=== PATIENT | male | born 1965 | race Caucasian/White ===

== ENCOUNTER → 2018-03-02 | Outpatient (CLI) | payer MEDICARE, OTHER ==
[~2018-03-02] MED LIST: ACET325T38 PO; CATHETER FLUSH 10 ML SYR IV PRN; CETI10TA17 PO; HYDR-3454 PO; LVT.1T PO; MTF500T PO; MULT-974 PO; PENI500T PO; SERT100T PO; TIZA4TAB55 PO; VARE1TAB17 PO
--- NOTE | 2018-03-02 18:56 | Cardiology Stress Test Report ---
Stress Test Report Date of Procedure/Referring: Date of Procedure: Mar 02, 2018 PCP Luis Sanchez MD Admitting Physician Shahzad Bar DO Indications: Chest pain, shortness of breath Baseline Heart Rate: 80 Baseline Blood Pressure: Blood Pressure Systolic: 125 Blood Pressure Diastolic: 82 Baseline EKG: Baseline EKG: Sinus rhythm Summary/Conclusion: Summary: In summary, the patient started exercising with a baseline heart rate 80 bpm, blood pressure and EKG mentioned above. Patient was able to exercise for a total of 6.30 minutes on Nathaniel protocol, METs 7.7 Maximum heart rate 145 bpm Maximum blood pressure 214/103 mmHg. [address] no ST-T wave abnormalities. Recovery EKG Return to baseline 10.34 mCi of Myoview were given for rest imaging and 30.9 mCi of Myoview were given for stress imaging. Transient ischemic dilatation score 1.08. Ejection fraction 61 percent. Moderate size inferior reversible defect. SSS 7, SRS 3, SDS 4. Conclusion: 1. Exercise stress test is negative for ischemia. 2. Average functional capacity. 3. Hypertensive response to exercise. 4. Normal LV function. 5. Moderate inferior ischemia. Coronary angiography is recommended. Luis SANCHEZ MD Mar 02, 2018 18:56
[2018-03-03 14:32] VITALS: BP 125/82
== END ==
LOC: CARD 07:25
PROVIDERS: ATTEND Internal Medicine Interventional Cardiology
DX: R07.9 Chest pain, unspecified (principal); E78.5 Hyperlipidemia, unspecified; I10 Essential (primary) hypertension
CPT/HCPCS: 78452; 93017

== ENCOUNTER → 2018-11-23 | Outpatient (CLI) | payer MEDICARE, OTHER ==
[~2018-11-23] MED LIST changes: +ALPR0.5T PO; +BUDE10.2 IH; -CATHETER FLUSH 10 ML SYR IV PRN; +CYCL10TA9 PO; +ESCI20TA PO; +GABA-488 PO; +HOLD METFORMIN - RECEIVED CONTRAST 20 ML VIAL IV SCH; +IBUP-2055 PO; +IOHEXOL 350 MG/ML 100 ML (OMNIPAQUE 350) VIAL IV ONE; +LEVO100T7 PO; +LISI10TA2 PO; +METF-397 PO; +MULT-178 PO; +NS 100 ML (IVPB) BAG IV ONE; +OMEG-160 PO; +RISP1TAB3 PO; +SIMV20TA3 PO
[2018-11-23 08:59] LABS: CREATININE SERUM 1.27 MG/DL (0.60-1.30)
--- NOTE | 2018-11-23 11:19 | Diagnostic Imaging Report ---
PROCEDURE: CT chest with contrast only. TECHNIQUE: Multiple contiguous axial images were obtained through the chest after administration of intravenous contrast. Auto Exposure Controls were utilized during the CT exam to meet ALARA standards for radiation dose reduction. INDICATION: Dyspnea and COPD. COMPARISON: No prior CT chest studies are available for comparison. FINDINGS: No axillary lymphadenopathy is detected. There is an enlarged lymph node identified in the mediastinum on AP window measuring 20 mm x 12 mm. Smaller, normal-sized lymph nodes elsewhere within the mediastinum are also noted. The abdiel are unremarkable. No pericardial or pleural fluid is detected. Parenchymal evaluation does demonstrate significant emphysematous changes throughout both lungs. No parenchymal mass or infiltrate is identified. Minimal scarring in the lingula and right middle lobe is noted. The upper abdomen is unremarkable. IMPRESSION: Enlarged AP window lymph node, indeterminate. No pulmonary parenchymal mass or infiltrate is seen. There are emphysematous changes noted. Followup CT chest for six months could be performed to confirm stability. Dictated by: Dictated on workstation # [id number]
== END ==
LOC: RAD 08:27
PROVIDERS: ATTEND Nurse Practitioner Family
DX: J43.9 Emphysema, unspecified (principal); J30.1 Allergic rhinitis due to pollen; Z72.0 Tobacco use
CPT/HCPCS: 36415; 71260; 82565; 84520

== ENCOUNTER → 2019-01-18 | Outpatient (CLI) | payer OTHER, MEDICARE ==
[~2019-01-18] MED LIST changes: -HOLD METFORMIN - RECEIVED CONTRAST 20 ML VIAL IV SCH; -IOHEXOL 350 MG/ML 100 ML (OMNIPAQUE 350) VIAL IV ONE; -NS 100 ML (IVPB) BAG IV ONE
[2019-01-18 19:50] LABS: BASOPHILS % (AUTO) 0 % (0-10); EOSINOPHILS # (AUTO) 0.2 10^3/uL (0.0-0.3); EOSINOPHILS % (AUTO) 4 % (0-10); HEMATOCRIT 42 % (40-54); HEMOGLOBIN 13.4 G/DL (13.3-17.7); LYMPHOCYTES # (AUTO) 1.3 X 10^3 (1.0-4.0); LYMPHOCYTES % (AUTO) 24 % (12-44); MEAN CORPUSCULAR HEMOGLOBIN 29 PG (25-34); MEAN CORPUSCULAR HGB CONC 32 G/DL (32-36); MEAN CORPUSCULAR VOLUME 90 FL (80-99); MEAN PLATELET VOLUME 9.5 FL (7.4-10.4); MONOCYTES # (AUTO) 0.6 X 10^3 (0.0-1.0); MONOCYTES % (AUTO) 11 % (0-12); NEUTROPHILS # (AUTO) 3.3 X 10^3 (1.8-7.8); NEUTROPHILS % (AUTO) 61 % (42-75); PLATELET COUNT 259 10^3/uL (130-400); RED CELL DISTRIBUTION WIDTH 14.2 % (10.0-14.5); WHITE BLOOD COUNT 5.4 10^3/uL (4.3-11.0)
== END ==
LOC: LABNPT 19:43
DX: Z01.89 Encounter for other specified special examinations (principal)
CPT/HCPCS: 85025

== ENCOUNTER → 2019-06-06 | Outpatient (CLI) | payer MEDICARE, OTHER ==
[~2019-06-06] MED LIST changes: +HOLD METFORMIN - RECEIVED CONTRAST 20 ML VIAL IV SCH; -IBUP-2055 PO; +IBUP-2473 PO; +IOHEXOL 350 MG/ML 100 ML (OMNIPAQUE 350) VIAL IV ONE; +NS 100 ML (IVPB) BAG IV ONE; +RT-ALBUTEROL SULF 2.5 MG/3 ML PRE-MIX VIAL INH ONE; +SIMV20TA26 PO; -SIMV20TA3 PO
[2019-06-06 08:25] LABS: BUN/CREATININE RATIO 6; CREATININE SERUM 1.09 MG/DL (0.60-1.30); GFR ESTIMATED > 60
--- NOTE | 2019-06-06 09:40 | Diagnostic Imaging Report ---
EXAMINATION: CT Chest with intravenous contrast. TECHNIQUE: Multiple contiguous axial images were obtained through the chest after the uneventful administration of intravenous contrast. All CT scans use one or more of the following dose optimizing techniques: automated exposure control, MA and/or KvP adjustment based on a patient size and exam type, or iterative reconstruction. HISTORY: Throat cancer. COMPARISON: 11/23/2018. FINDINGS: There is no edema or pneumonia. No pleural effusion. No pneumothorax. There is a stable 3 mm nodule in the lingula (series 3, image 96). The lungs are severely emphysematous. The heart size is normal. There are moderate coronary artery calcifications. No pericardial effusion. The aorta is normal in caliber. There is no axillary or supraclavicular lymphadenopathy. There is a stable 12 mm short axis AP window lymph node. Limited views of the upper abdomen are unremarkable. There are no suspicious osseus lesions. IMPRESSION: Stable tiny pulmonary nodules and mildly enlarged mediastinal lymph nodes. Dictated by: Dictated on workstation # [id number]
== END ==
LOC: RAD 07:57
PROVIDERS: ATTEND Nurse Practitioner Family
DX: J44.9 Chronic obstructive pulmonary disease, unspecified (principal); J30.1 Allergic rhinitis due to pollen; R59.0 Localized enlarged lymph nodes; Z72.0 Tobacco use; Z85.89 Personal history of malignant neoplasm of other organs and systems
CPT/HCPCS: 36415; 71260; 82565; 84520; 94060; 94726; 94729

== ENCOUNTER 2020-03-05 10:35 | Inpatient (IN) | payer MEDICARE, OTHER ==
[~2020-03-05] VITALS: Ht 165.1 cm; Wt 67.5 kg
[~2020-03-05 10:35] MED LIST changes: -HOLD METFORMIN - RECEIVED CONTRAST 20 ML VIAL IV SCH; -IOHEXOL 350 MG/ML 100 ML (OMNIPAQUE 350) VIAL IV ONE; -NS 100 ML (IVPB) BAG IV ONE; -RISP1TAB3 PO; +RISP1TAB93 PO; -RT-ALBUTEROL SULF 2.5 MG/3 ML PRE-MIX VIAL INH ONE
[2020-03-05] MEDS ORDERED: ENOXAPARIN 40 MG/0.4 ML (LOVENOX) SYR SC SCH (11:15)
[2020-03-05] MEDS ORDERED: PHARMACY TO DOSE IV SCH (11:15)
[2020-03-05] MEDS: NS IV 1000 ML 1,000 ML IV SCH (15:42)
[2020-03-05] MEDS: fentaNYL DRIP PRE-MIX 250 ML IV SCH (15:43)
[2020-03-05] MEDS: PROPOFOL DRIP (ICU) 100 ML IV SCH (15:50)
[2020-03-05 16:10] LABS: CHLORIDE 90 MMOL/L (98-107); POTASSIUM 3.3 MMOL/L (3.6-5.0); SODIUM 138 MMOL/L (135-145)
[2020-03-05 16:11] LABS: CALCIUM 7.8 MG/DL (8.5-10.1)
[2020-03-05 16:12] LABS: GLUCOSE 163 MG/DL (70-105)
[2020-03-05 16:13] LABS: CARBON DIOXIDE 36 MMOL/L (21-32)
[2020-03-05 16:16] LABS: GFR ESTIMATED > 60
--- NOTE | 2020-03-05 16:16 | Diagnostic Imaging Report ---
INDICATION: Shortness of breath. EXAMINATION: Portable chest at 4:02 p.m. FINDINGS: There is an ET tube projecting over the trachea. NG tube enters the stomach. Heart size and pulmonary vascularity are normal. Lungs are clear. There is no effusion or pneumothorax. IMPRESSION: No acute abnormality in the chest. Dictated by: Dictated on workstation # [id number]
[2020-03-05 16:17] LABS: BUN/CREATININE RATIO 13
[2020-03-05 16:19] VITALS: BP 167/98
[2020-03-05] MEDS ORDERED: RT-ALBUTEROL SULF 2.5 MG/3 ML PRE-MIX VIAL INH PRN (16:30)
[2020-03-05] MEDS ORDERED: LACTATED RINGERS 1,000 ML IV ONE (16:45)
[2020-03-05] MEDS ORDERED: LACTATED RINGERS 2,000 ML IV ONE (16:46)
[2020-03-05] MEDS: LACTATED RINGERS 1,000 ML IV SCH (16:50)
--- NOTE | 2020-03-05 17:06 | NUR ---
CR 0.8; CR CL > 60; WT 63.4 KG; VANCO 1250 MG IV BOLUS THEN 1000 MG IV Q12H; TROUGH AFTER 3RD DOSE
[2020-03-05] MEDS ORDERED: VANCOMYCIN 1250 MG/NS 250 ML IVPB IV NR ×2 (17:15)
[2020-03-05] MEDS: CEFEPIME INJECTION 2,000 MG in WATER (STERILE) FOR INJECTION 20 ML IV SCH (18:16)
[2020-03-05] MEDS: ENOXAPARIN 40 MG/0.4 ML (LOVENOX) SYR SC SCH (18:17)
[2020-03-05] MEDS: NOREPINEPHRINE 4 MG/250 ML 250 ML IV SCH (18:22)
[2020-03-05 19:20] VITALS: BP 122/77
[2020-03-05] MEDS: RT-ALBUTEROL/IPRATROPIUM 3 ML (DUONEB) VIAL INH SCH ×2 (19:20→22:36)
[2020-03-05 19:31] LABS: ABG BASE EXCESS 16.1 MMOL/L (-2.5-2.5); ABG OXYGEN SATURATION 95 % (94-100); ABG PCO2 45 MMHG (35-45); ABG PH 7.55 (7.37-7.43); ABG PO2 56 MMHG (79-93); ABG TCO2 41.7 MMOL/L (21.0-31.0); ALLENS TEST YES-POS; INSPIRED O2 45%; PATIENT TEMP 36.2; VENTILATOR YES
--- NOTE | 2020-03-05 20:48 | Progress Note ---
Progress Note 54yoWM patient of Dr Bar who [place] [facility] [place] [facility] due to worsening respiratory failure and AMS due to hypoxia and hypercapnia. Patient has severe COPD and continues to smoke 2ppd and was admitted to [facility] Tuesday with severe dyspnea and resp failure requiring biPAP. COVID rapid and PCR negative. Placed on IV abx and steroids. Severe chronic anxiety caused diff with biPAP maintenance. BiPAP DC this morning due to improved hypercapnia but he became more and more confused and was ultimately intubated due to worsened hypoxia. DNR was revoked on Tuesday after DNR order obtained on admit. SHELLEY KRAMER DO Mar 05, 2020 20:48
[2020-03-05 22:36] VITALS: BP_DIAS 77
[2020-03-06] MEDS: PROPOFOL DRIP (ICU) 100 ML IV SCH ×3 (00:08→20:22)
[2020-03-06] MEDS: LACTATED RINGERS 1,000 ML IV SCH ×5 (02:08→23:48)
[2020-03-06] MEDS: fentaNYL DRIP PRE-MIX 250 ML IV SCH ×3 (02:08→18:23)
[2020-03-06] MEDS: RT-ALBUTEROL/IPRATROPIUM 3 ML (DUONEB) VIAL INH SCH ×6 (02:57→22:24)
--- NOTE | 2020-03-06 02:58 | Pulmonary Consultation ---
COOPER PEREZ,MED STUDENT 03/06/20 0258: History of Present Illness History of Present Illness Date Seen by Provider: Mar 06, 2020 Time Seen by Provider: 03:00 Date of Admission 03/05/20 History of Present Illness Patient is a 54yo male with a hx of COPD transferred to [facility] from [facility] [place] due to worsening respiratory failure and AMS. He has severe COPD and was admitted to [facility] on 03/03 due to respiratory failure requiring BIPAP. He was started on antibiotics and steroids, and attempted to DC BIPAP, but he became more hypoxic and confused and ultimately required intubation and transfer to ICU. COVID rapid and PCR were negative. Allergies and Home Medications Allergies Coded Allergies: No Known Drug Allergies (Unverified , 03/23/13) Home Medications Alprazolam 0.5 Mg Tablet, 0.5 MG PO HS, (Reported) Budesonide/Formoterol Fumarate 10.2 Gm Hfa.aer.ad, 2 PUFF IH DAILY, (Reported) Cetirizine HCl 10 Mg Tablet, 10 MG PO 1200, (Reported) Cyclobenzaprine HCl 10 Mg Tablet, 10 MG PO DAILY, (Reported) Escitalopram Oxalate 20 Mg Tablet, 30 MG PO DAILY, (Reported) TAKES 1 & 1/2 TABS OF THE 20MG TO EQUAL A 30MG DOSE Gabapentin 300 Mg Capsule, 300 MG PO BID, (Reported) Ibuprofen 200 Mg Tablet, 400 MG PO DAILY, (Reported) Levothyroxine Sodium 100 Mcg Tablet, 100 MCG PO 1200, (Reported) Lisinopril 10 Mg Tablet, 10 MG PO HS, (Reported) Metformin HCl 500 Mg Tablet, 500 MG PO BID, (Reported) Multivitamin 1 Each Tablet, 1 EACH PO DAILY, (Reported) Olpe-3/Dha/Epa/Fish Oil 1 Each Capsule, 1 EACH PO DAILY, (Reported) Risperidone 1 Mg Tablet, 1 MG PO HS, (Reported) Simvastatin 20 Mg Tablet, 20 MG PO HS, (Reported) Past Hiygfql-Rrydox-Btysyl Hx Patient Social History Type Used: Cigarettes Immunizations Up To Date Date of Pneumonia Vaccine: Jun 03, 2017 Date of Influenza Vaccine: Dec 27, 2012 Past Medical History Respiratory: Yes COPD Currently Using CPAP: No Currently Using BIPAP: No Cardiac: Yes Hypertension Neurological: No Genitourinary: No Gastrointestinal: No Hypothyroidsim Cancer: Yes Oral Did You Recieve Any Treatments: Yes Blood Disorders: No Review of Systems Other Unable to obtain, sedated on vent Sepsis Event Evaluation Height, Weight, BMI Height: 5'8.00" Weight: 139lbs. 0.0oz. 63.306803mu; 21.1 BMI Method: Exam Exam Vital Signs Date Time Temp Pulse Resp B/P (MAP) Pulse Ox O2 Delivery O2 Flow Rate FiO2 03/06/20 00:08 89 128/83 03/06/20 00:00 98 Mechanical Ventilator 45 03/05/20 23:00 93 24 109/76 (87) 99 Mechanical Ventilator 40.00 03/05/20 22:48 Mechanical Ventilator 40.00 03/05/20 22:36 80 24 100 45 03/05/20 22:00 78 23 116/75 (89) 100 Mechanical Ventilator 45.00 03/05/20 21:00 85 24 110/71 (84) 100 Mechanical Ventilator 45.00 03/05/20 20:05 36.2 03/05/20 20:00 100 Mechanical Ventilator 60 03/05/20 20:00 93 24 116/74 (88) 100 Mechanical Ventilator 45.00 03/05/20 19:20 90 24 97 45 03/05/20 19:00 89 03/05/20 19:00 89 19 115/76 (89) 99 Mechanical Ventilator 45.00 03/05/20 18:22 87 128/83 03/05/20 18:00 36.8 87 23 128/83 (98) 99 Mechanical Ventilator 95.00 03/05/20 17:00 36.8 78 24 138/89 (105) 99 Mechanical Ventilator 95.00 03/05/20 16:19 102 100 03/05/20 16:00 100 Mechanical Ventilator 60 03/05/20 16:00 36.8 85 24 70/42 (51) 95 Mechanical Ventilator 95.00 03/05/20 15:50 94 94/53 03/05/20 15:10 106 03/05/20 15:00 99 Mechanical Ventilator 03/05/20 15:00 36.8 102 24 167/98 (121) 100 Mechanical Ventilator 95.00 l I & O 03/06/20 06:59 Intake Total 0 ml Output Total 550 ml Balance -550 ml Height & Weight Height: 5'8.00" Weight: 139lbs. 0.0oz. 63.906722gf; 21.1 BMI Method: Capillary Refill: Less Than 3 Seconds Results Lab Laboratory Tests 03/05/20 15:45 Assessment/Plan Assessment/Plan Acute on chronic respiratory failure -On vent 40% FiO2, PEEP of 10 -On propofol and fentanyl -COVID rapid and PCR negative COPD with acute exacerbation -On vent -On Cefepime and Vanc -continue Duoneb -MRSA screen pending -repeat ABG Hypokalemia -continue to replace -on LR at 150/hr Hypophosphatemia -replace Hypotension -on Levophed 0.03/hr -on IV fluids -monitor DVT/GI ppx: -on Lovenox and Protonix BARBY CAPELLAN DO 03/06/20 0551: Allergies and Home Medications Allergies Coded Allergies: No Known Drug Allergies (Unverified , 03/23/13) Home Medications Alprazolam 0.5 Mg Tablet, 0.5 MG PO HS, (Reported) Budesonide/Formoterol Fumarate 10.2 Gm Hfa.aer.ad, 2 PUFF IH DAILY, (Reported) Cetirizine HCl 10 Mg Tablet, 10 MG PO 1200, (Reported) Cyclobenzaprine HCl 10 Mg Tablet, 10 MG PO DAILY, (Reported) Escitalopram Oxalate 20 Mg Tablet, 30 MG PO DAILY, (Reported) TAKES 1 & 1/2 TABS OF THE 20MG TO EQUAL A 30MG DOSE Gabapentin 300 Mg Capsule, 300 MG PO BID, (Reported) Ibuprofen 200 Mg Tablet, 400 MG PO DAILY, (Reported) Levothyroxine Sodium 100 Mcg Tablet, 100 MCG PO 1200, (Reported) Lisinopril 10 Mg Tablet, 10 MG PO HS, (Reported) Metformin HCl 500 Mg Tablet, 500 MG PO BID, (Reported) Multivitamin 1 Each Tablet, 1 EACH PO DAILY, (Reported) Olpe-3/Dha/Epa/Fish Oil 1 Each Capsule, 1 EACH PO DAILY, (Reported) Risperidone 1 Mg Tablet, 1 MG PO HS, (Reported) Simvastatin 20 Mg Tablet, 20 MG PO HS, (Reported) Review of Systems Time Seen by Provider: 05:50 Assessment/Plan Assessment/Plan Acute on chronic respiratory failure -On vent 40% FiO2, PEEP of 10 -Decrease RR to 20 and PEEP 5 -On propofol and fentanyl -COVID rapid and PCR negative -MRSA swab is pending -Start TF COPD with acute exacerbation -On vent -On Cefepime and Vanc -continue Duoneb -MRSA screen pending -repeat ABG Hypokalemia -continue to replace -on LR at 150/hr Hypophosphatemia -replace Hypotension -on Levophed 0.03/hr -on IV fluids -monitor DVT/GI ppx: -on Lovenox and Protonix COOPER PEREZMED STUDENT Mar 06, 2020 02:58 BARBY CAPELLAN DO Mar 06, 2020 05:51
[2020-03-06 03:01] LABS: ABG BASE EXCESS 14.7 MMOL/L (-2.5-2.5); ABG OXYGEN SATURATION 98 % (94-100); ABG PCO2 52 MMHG (35-45); ABG PH 7.49 (7.37-7.43); ABG PO2 90 MMHG (79-93); ABG TCO2 40.9 MMOL/L (21.0-31.0)
[2020-03-06 03:02] LABS: BASOPHILS % (AUTO) 0 % (0-10); EOSINOPHILS % (AUTO) 0 % (0-10); HEMATOCRIT 35 % (40-54); HEMOGLOBIN 11.5 g/dL (13.3-17.7); LYMPHOCYTES # (AUTO) 0.7 10^3/uL (1.0-4.0); LYMPHOCYTES % (AUTO) 9 % (12-44); MEAN CORPUSCULAR HEMOGLOBIN 31 pg (25-34); MEAN CORPUSCULAR HGB CONC 33 g/dL (32-36); MEAN CORPUSCULAR VOLUME 93 fL (80-99); MEAN PLATELET VOLUME 8.5 fL (9.0-12.2); MONOCYTES # (AUTO) 0.6 10^3/uL (0.0-1.0); MONOCYTES % (AUTO) 8 % (0-12); NEUTROPHILS # (AUTO) 6.2 10^3/uL (1.8-7.8); NEUTROPHILS % (AUTO) 83 % (42-75); PLATELET COUNT 199 10^3/uL (130-400); WHITE BLOOD COUNT 7.4 10^3/uL (4.3-11.0)
[2020-03-06 03:03] LABS: ALLENS TEST ART LINE; INSPIRED O2 40%; VENTILATOR YES
[2020-03-06 03:04] LABS: PATIENT TEMP 36.8
[2020-03-06] MEDS: NS IV 1000 ML 1,000 ML IV SCH ×2 (03:17→11:04)
[2020-03-06] MEDS: NOREPINEPHRINE 4 MG/250 ML 250 ML IV SCH ×2 (03:23→14:52)
[2020-03-06 03:24] LABS: ALANINE AMINOTRANSFERASE 18 U/L (0-55); ALBUMIN 3.1 GM/DL (3.2-4.5); ALKALINE PHOSPHATASE 66 U/L (40-136); BILIRUBIN,TOTAL 0.2 MG/DL (0.1-1.0); BUN/CREATININE RATIO 17; CALCIUM 7.3 MG/DL (8.5-10.1); CARBON DIOXIDE 35 MMOL/L (21-32); CHLORIDE 94 MMOL/L (98-107); CREATININE SERUM 0.92 MG/DL (0.60-1.30); GFR ESTIMATED > 60; GLUCOSE 130 MG/DL (70-105); MAGNESIUM 1.6 MG/DL (1.6-2.4); PHOSPHORUS 1.7 MG/DL (2.3-4.7); SODIUM 141 MMOL/L (135-145)
[2020-03-06] MEDS: POTASSIUM CL 10MEQ/50ML IVPB 50 ML IV SCH ×6 (04:01→09:05)
[2020-03-06] MEDS: KCL 20 MEQ TAB (K-DUR) PO SCH (04:01)
[2020-03-06] MEDS: MAGNESIUM 1 GM/100 ML IVPB 100 ML IV SCH ×3 (04:01→05:20)
[2020-03-06] MEDS ORDERED: NS (IVPB) 0 ML ONE (04:10)
[2020-03-06] MEDS ORDERED: VANCOMYCIN 1000 MG/VIAL ONE (04:10)
[2020-03-06] MEDS: CEFEPIME INJECTION 2,000 MG in WATER (STERILE) FOR INJECTION 20 ML IV SCH ×2 (04:18→17:12)
[2020-03-06] MEDS: VANCOMYCIN 1 GM/NS 250 ML IVPB IV SCH ×4 (04:58→17:11)
--- NOTE | 2020-03-06 05:57 | History & Physical-Hospitalist ---
History of Present Illness HPI/Chief Complaint CC: VDRF HPI: This is a 54yoWM clinic patient of Dr Bar who [place] [facility] [place]DRF in severe COPD patient who is still actively smoking. DNR rescinded yesterday and worsened respiratory status after COVID negative results. PNA treated along with AECOPD with steroids and biPAP did not improve status so he was electively intubated and transferred. Source: RN/MD, old records, other Exam Limitations: clinical condition Date Seen 03/06/20 Time Seen by a Provider: 10:00 Attending Physician Jazmine Martell DO PCP Shahzad Bar DO Referring Physician Date of Admission Mar 05, 2020 at 15:18 Home Medications & Allergies Home Medications Reviewed patient Home Medication Reconciliation performed by pharmacy medication reconciliations records technician and/or nursing. Patients Allergies have been reviewed. Allergies Allergies Coded Allergies No Known Drug Allergies (Unverified03/23/13) Past Pvdqjzi-Sueozo-Zuujij Hx Past Med/Social Hx: Reviewed Nursing Past Med/Soc Hx, Reviewed and Corrections made Patient Social History Marrital Status: Employed/Student: unemployed Alcohol Use: Denies Use Smoking Status: Current Everyday Smoker Type Used: Cigarettes Immunizations Up To Date Date of Pneumonia Vaccine: Jun 03, 2017 Date of Influenza Vaccine: Dec 27, 2012 Past Medical History Respiratory: COPD, Emphysema, Pneumonia Currently Using CPAP: No Currently Using BIPAP: No Cardiac: High Cholesterol, Hypertension Endocrine: Hypothyroidsim Cancer: Oral Did You Recieve Any Treatments: Yes Psychosocial: Anxiety History of Blood Disorders: No Review of Systems Constitutional: see HPI Physical Exam Physical Exam Vital Signs Vital Signs - First Documented 03/05/20 16:00 FiO2 60 Capillary Refill : Less Than 3 Seconds Height, Weight, BMI Height: 5'8.00" Weight: 139lbs. 0.0oz. 63.247912ox; 21.1 BMI Method: General Appearance: No Apparent Distress, Chronically ill, Thin Respiratory: Lungs Clear, Decreased Breath Sounds Cardiovascular: Regular Rate, Rhythm Neurologic/Psychiatric: Other (sedated) Results Results/Procedures Labs Laboratory Tests 03/05/20 15:45 03/06/20 02:54 Patient resulted labs reviewed. Assessment/Plan Admission Diagnosis Assessment: VDRF AECOPD Severe COPD Current smoker Anxiety HLP HTN Plan: Vent management Appreciate Dr Padron Admission Status: Inpatient Order (span 2 midnights) Reason for Inpatient Admission: VDRF Diagnosis/Problems Diagnosis/Problems (1) Respiratory failure Clinical Quality Measures DVT/VTE Risk/Contraindication: Risk Factor Score Per Nursin RFS Level Per Nursing on Admit: 4+=Very High JAZMINE MARTELL DO Mar 06, 2020 05:57
[2020-03-06] MEDS ORDERED: LACTATED RINGERS 1,000 ML IV SCH (06:00)
--- NOTE | 2020-03-06 06:00 | NUR ---
This nurse notified of patients decreased urine output. order received for a 1L LR bolus
[2020-03-06 06:50] VITALS: BP 149/95
[2020-03-06 07:01] LABS: BILIRUBIN,URINE 1+ (NEGATIVE); CLARITY,URINE CLOUDY; COLOR,URINE YELLOW; GLUCOSE, URINE (UA) NEGATIVE (NEGATIVE); KETONES,URINE TRACE (NEGATIVE); LEUKOCYTE ESTERASE ,URINE NEGATIVE (NEGATIVE); NITRITE,URINE NEGATIVE (NEGATIVE); PROTEIN,URINE 2+ (NEGATIVE)
[2020-03-06 07:10] LABS: AMORPHOUS SEDIMENT,UR FEW AMOR URATES /LPF; BACTERIA,URINE MODERATE /HPF; HYALINE CASTS, URINE 0-2 /LPF; RBC,URINE >100 /HPF
--- NOTE | 2020-03-06 07:40 | Diagnostic Imaging Report ---
CHEST 1 VIEW, AP/PA ONLY Indication: Dyspnea Comparison: 03/05/2020 Findings: Stable ET and enteric tubes. No pleural effusion or pneumothorax. Left basilar ill-defined opacities are stable to mildly progressed. Stable cardiac mediastinal silhouette. Impression: 1. Stable support devices. 2. Left basilar pulmonary opacities have increased and may be due to atelectasis, aspiration or pneumonia. Dictated by: Dictated on workstation # [id number]
[2020-03-06] MEDS: PANTOPRAZOLE 40 MG (PROTONIX) VIAL IV SCH (08:51)
[2020-03-06] MEDS ORDERED: POTASSIUM PHOSPHATE INJ 30 MM in NS (IVPB) 250 ML IV ONE (09:00)
[2020-03-06 09:26] LABS: ABG BASE EXCESS 11.5 MMOL/L (-2.5-2.5); ABG OXYGEN SATURATION 78 % (94-100); ABG PCO2 69 MMHG (35-45); ABG PH 7.35 (7.37-7.43); ABG PO2 43 MMHG (79-93); ABG TCO2 39.7 MMOL/L (21.0-31.0)
[2020-03-06 09:29] LABS: ALLENS TEST POSITIVE; INSPIRED O2 40%; PATIENT TEMP 36.4; VENTILATOR YES
[2020-03-06 10:12] VITALS: BP 117/83
[2020-03-06] MEDS ORDERED: LACTATED RINGERS 500 ML IV ONE ×2 (11:15→18:15)
--- NOTE | 2020-03-06 12:16 | NUR ---
PT ELEANOR WAS UPDATED ON CURRENT PT STATUS.
--- NOTE | 2020-03-06 14:17 | NUR ---
Shoaib RN stated he was planning on placing a dietary consult for vent status. Discussed with him plan of care and if plan was to remain intubated for more than 3days, would recommend initiation of TF of Pulmocare via 60ml bolus feeds q4h, with 30ml free water flushes before/after each bolus. Recommend continue to increase TF by 30ml q8h as tolerated toward goal of 200ml bolus feeds q4h. Will continue to follow and reassess as pt needs, intake, and status change. Kerry Tao, MS RD LD [phone] cell
[2020-03-06 14:35] VITALS: BP 116/74
[2020-03-06] MEDS: ENOXAPARIN 40 MG/0.4 ML (LOVENOX) SYR SC SCH (17:12)
[2020-03-06 18:46] VITALS: BP 116/74
[2020-03-06 22:24] VITALS: BP 109/68
[2020-03-07] MEDS: NOREPINEPHRINE 4 MG/250 ML 250 ML IV SCH
[2020-03-07] MEDS: PROPOFOL DRIP (ICU) 100 ML IV SCH (00:48)
[2020-03-07 02:24] VITALS: BP 102/66
[2020-03-07] MEDS: RT-ALBUTEROL/IPRATROPIUM 3 ML (DUONEB) VIAL INH SCH ×6 (02:24→22:27)
[2020-03-07 02:30] LABS: ABG BASE EXCESS 7.3 MMOL/L (-2.5-2.5); ABG OXYGEN SATURATION 90 % (94-100); ABG PCO2 67 MMHG (35-45); ABG PO2 64 MMHG (79-93); ABG TCO2 35.8 MMOL/L (21.0-31.0)
[2020-03-07 02:33] LABS: ALLENS TEST YES-POS; INSPIRED O2 45%; PATIENT TEMP 35.8; VENTILATOR YES
[2020-03-07 02:36] LABS: BASOPHILS % (AUTO) 0 % (0-10); EOSINOPHILS % (AUTO) 0 % (0-10); HEMATOCRIT 40 % (40-54); HEMOGLOBIN 12.4 g/dL (13.3-17.7); LYMPHOCYTES # (AUTO) 1.4 10^3/uL (1.0-4.0); LYMPHOCYTES % (AUTO) 16 % (12-44); MEAN CORPUSCULAR HEMOGLOBIN 30 pg (25-34); MEAN CORPUSCULAR HGB CONC 31 g/dL (32-36); MEAN CORPUSCULAR VOLUME 98 fL (80-99); MEAN PLATELET VOLUME 8.8 fL (9.0-12.2); MONOCYTES # (AUTO) 0.6 10^3/uL (0.0-1.0); MONOCYTES % (AUTO) 7 % (0-12); NEUTROPHILS # (AUTO) 6.9 10^3/uL (1.8-7.8); NEUTROPHILS % (AUTO) 76 % (42-75); PLATELET COUNT 235 10^3/uL (130-400)
[2020-03-07 02:37] LABS: ABG PH 7.31 (7.37-7.43)
[2020-03-07 02:50] LABS: CHLORIDE 97 MMOL/L (98-107); POTASSIUM 4.1 MMOL/L (3.6-5.0); SODIUM 138 MMOL/L (135-145)
[2020-03-07 02:51] LABS: CALCIUM 7.5 MG/DL (8.5-10.1)
[2020-03-07 02:52] LABS: GLUCOSE 93 MG/DL (70-105); TRIGLYCERIDES 378 MG/DL (<150)
[2020-03-07 02:53] LABS: CARBON DIOXIDE 31 MMOL/L (21-32)
[2020-03-07 02:56] LABS: CREATININE SERUM 0.88 MG/DL (0.60-1.30); GFR ESTIMATED > 60; PHOSPHORUS 4.1 MG/DL (2.3-4.7)
[2020-03-07 02:57] LABS: BUN/CREATININE RATIO 20
[2020-03-07 03:08] LABS: VANCOMYCIN,TROUGH 27.4 UG/ML (10.0-20.0)
[2020-03-07] MEDS: fentaNYL DRIP PRE-MIX 250 ML IV SCH ×3 (03:22→18:33)
--- NOTE | 2020-03-07 03:52 | Pulmonary Progress Note ---
COOPER PEREZ,MED STUDENT 03/07/20 0352: Subjective Date Seen by a Provider: Mar 07, 2020 Time Seen by a Provider: 03:30 Subjective/Events-last exam Sedated on vent Sats dropped into 70's overnight, improved with suctioning and repositioning Sepsis Event Evaluation Height, Weight, BMI Height: 5'8.00" Weight: 139lbs. 0.0oz. 63.592004dn; 21.1 BMI Method: Exam Exam Vital Signs Date Time Temp Pulse Resp B/P (MAP) Pulse Ox O2 Delivery O2 Flow Rate FiO2 03/07/20 03:28 Mechanical Ventilator 50.00 03/07/20 02:24 81 20 92 45 03/07/20 00:48 73 03/06/20 23:00 73 19 99/64 (76) 92 Mechanical Ventilator 40.00 03/06/20 22:24 Mechanical Ventilator 40.00 03/06/20 22:24 75 20 97 45 03/06/20 22:00 76 20 102/69 (80) 96 Mechanical Ventilator 45.00 03/06/20 21:00 76 20 109/68 (82) 95 Mechanical Ventilator 45.00 03/06/20 20:55 76 20 112/70 (84) 95 Mechanical Ventilator 45.00 03/06/20 20:45 Mechanical Ventilator 45 03/06/20 20:22 116/74 03/06/20 20:00 75 20 112/70 (84) 99 Mechanical Ventilator 45.00 03/06/20 19:50 35.3 03/06/20 19:00 73 03/06/20 19:00 72 20 93 Mechanical Ventilator 45.00 03/06/20 18:46 75 20 93 35 03/06/20 18:00 78 19 92 Mechanical Ventilator 40.00 03/06/20 17:00 80 20 92 Mechanical Ventilator 40.00 03/06/20 16:00 84 19 95 Mechanical Ventilator 40.00 03/06/20 16:00 93 Mechanical Ventilator 35 03/06/20 15:46 82 116/74 03/06/20 15:35 35.7 03/06/20 15:00 81 19 91 Mechanical Ventilator 40.00 03/06/20 14:35 82 20 91 35 03/06/20 14:00 86 19 93 Mechanical Ventilator 40.00 03/06/20 13:00 85 03/06/20 13:00 85 19 103/75 (84) 94 Mechanical Ventilator 40.00 03/06/20 12:00 81 20 131/94 (106) 95 Mechanical Ventilator 40.00 03/06/20 12:00 94 Mechanical Ventilator 35 03/06/20 11:49 36.1 03/06/20 11:00 80 20 87/63 (71) 95 Mechanical Ventilator 40.00 03/06/20 10:12 87 20 99 40 03/06/20 10:00 81 16 109/74 (86) 98 Mechanical Ventilator 40.00 03/06/20 09:00 121 15 108/74 (85) 97 Mechanical Ventilator 40.00 03/06/20 08:00 96 Mechanical Ventilator 40 03/06/20 08:00 86 20 128/89 (102) 97 Mechanical Ventilator 40.00 03/06/20 07:47 35.9 03/06/20 07:00 87 20 127/85 (99) 93 Mechanical Ventilator 40.00 03/06/20 07:00 86 03/06/20 06:50 87 20 96 40 03/06/20 06:20 37.2 03/06/20 06:00 82 23 135/87 (103) 99 Mechanical Ventilator 40.00 03/06/20 05:00 81 24 125/80 (95) 99 Mechanical Ventilator 40.00 03/06/20 04:00 80 24 122/74 (90) 98 Mechanical Ventilator 40.00 03/06/20 04:00 98 Mechanical Ventilator 45 I & O0 03/07/20 07:00 Intake Total 0 ml Output Total 425 ml Balance -425 ml Height & Weight Height: 5'8.00" Weight: 139lbs. 0.0oz. 63.412336dg; 21.1 BMI Method: General Appearance: No Apparent Distress, Chronically ill, Thin Respiratory: Lungs Clear, Decreased Breath Sounds Cardiovascular: Regular Rate, Rhythm Capillary Refill: Less Than 3 Seconds Neurologic/Psychiatric: Other (sedated) Results Lab Laboratory Tests 03/05/20 15:45 03/06/20 02:54 03/07/20 01:50 Assessment/Plan Assessment/Plan Acute on chronic respiratory failure -On vent 50% FiO2, PEEP of 5 -Increase PEEP to 10 -On propofol and fentanyl -COVID rapid and PCR negative -MRSA swab negative -Started TF COPD with acute exacerbation -On vent -On Cefepime and Vanc -continue Duoneb -MRSA screen negative -repeat ABG Hypokalemia - improved -continue to replace -on LR at 150/hr Hypophosphatemia - improved -replace Hypotension -Levophed off -on IV fluids -monitor DVT/GI ppx: -on Lovenox and Protonix BARBY CAPELLAN DO 03/07/20 0427: Assessment/Plan Assessment/Plan Acute on chronic respiratory failure -On vent 50% FiO2, PEEP of 5 -Increase PEEP to 10 -On propofol and fentanyl -COVID rapid and PCR negative -MRSA swab negative -Started TF COPD with acute exacerbation -On vent -On Cefepime and Vanc -continue Duoneb -MRSA screen negative -repeat ABG Hypokalemia - improved -continue to replace -on LR at 150/hr Hypophosphatemia - improved -replace Hypotension -Levophed off -on IV fluids -monitor DVT/GI ppx: -on Lovenox and Protonix COOPER PEREZMED STUDENT Mar 07, 2020 03:52 BARBY CAPELLAN DO Mar 07, 2020 04:27
[2020-03-07] MEDS: POTASSIUM CL 10MEQ/50ML IVPB 50 ML IV SCH (03:59)
[2020-03-07] MEDS: KCL 20 MEQ TAB (K-DUR) PO SCH (04:00)
[2020-03-07] MEDS: MAGNESIUM 1 GM/100 ML IVPB 100 ML IV SCH (04:00)
[2020-03-07] MEDS ORDERED: LACTATED RINGERS 1,000 ML IV SCH (04:30)
[2020-03-07] MEDS ORDERED: TROUGH ORDER-PHARMACY XX NR (05:00)
[2020-03-07] MEDS: CEFEPIME INJECTION 2,000 MG in WATER (STERILE) FOR INJECTION 20 ML IV SCH ×2 (05:21→16:29)
[2020-03-07] MEDS: methylPREDNISolone 40 MG/ML (Solu-MEDROL) VIAL IV SCH ×4 (05:21→23:21)
[2020-03-07] MEDS: VANCOMYCIN 1 GM/NS 250 ML IVPB IV SCH ×4 (05:21→11:59)
[2020-03-07] MEDS: MIDAZOLAM DRIP PRE-MIX 100 ML IV SCH (05:25)
--- NOTE | 2020-03-07 05:36 | Diagnostic Imaging Report ---
Indication: Shortness of breath Portable chest 1:09 AM There is ET tube projects over the trachea. NG tube enters the stomach. Right extremity PICC line tip projects over the SVC. Heart size and pulmonary vascularity are normal. Lungs are clear. There are no effusions or pneumothoraces. IMPRESSION: No acute abnormalities the chest. There is less vascular congestion compared to previous day. Dictated by: Dictated on workstation # [id number]
[2020-03-07 07:34] VITALS: BP 144/84
[2020-03-07] MEDS: PANTOPRAZOLE 40 MG (PROTONIX) VIAL IV SCH (08:07)
[2020-03-07] MEDS: LACTATED RINGERS 1,000 ML IV SCH ×3 (08:07→19:30)
--- NOTE | 2020-03-07 10:41 | NUR ---
VANCOMYCIN DOSING VANCOMYCIN LEVEL WAS DRAWN 3 HOURS EARLY WAS 27.4 SO 06:00 DOSE WAS HELD AND NEW LEVEL WAS ORDERED AT 09:12 19.8 - USING CLINCALC DATA CHANGED DOSE TO VANC 1250 MG Q24H
--- NOTE | 2020-03-07 10:44 | Progress Note - Hospitalist ---
Subjective HPI/CC On Admission Date Seen by Provider: Mar 07, 2020 Time Seen by Provider: 10:00 CC: VDRF HPI: This is a 54yoWM clinic patient of Dr Bar who [place] [facility] [place]F in severe COPD patient who is still actively smoking. DNR rescinded yesterday and worsened respiratory status after COVID negative results. PNA treated along with AECOPD with steroids and biPAP did not improve status so he w as electively intubated and transferred. Subjective/Events-last exam Not weaning yet Very severe COPD noted Objective Exam Vital Signs Vital Signs Date Time Temp Pulse Resp B/P (MAP) Pulse Ox O2 Delivery O2 Flow Rate FiO2 03/08/20 05:00 96 19 117/68 (84) 92 Mechanical Ventilator 65.00 03/08/20 03:04 35.4 03/08/20 02:29 100 Capillary Refill : Less Than 3 Seconds General Appearance: No Apparent Distress, WD/WN, Chronically ill, Thin Respiratory: Decreased Breath Sounds Cardiovascular: Regular Rate, Rhythm Results/Procedures Lab Laboratory Tests 03/08/20 02:50 Patient resulted labs reviewed. Assessment/Plan Assessment and Plan Assess & Plan/Chief Complaint Assessment: VDRF AECOPD Severe COPD Current smoker Anxiety HLP HTN Plan: Vent management Appreciate Dr Padron 03/07/20: Vent COPD is severe Diagnosis/Problems Diagnosis/Problems (1) Respiratory failure Clinical Quality Measures DVT/VTE Risk/Contraindication: Risk Factor Score Per Nursin RFS Level Per Nursing on Admit: 4+=Very High SHELLEY KRAMER DO Mar 07, 2020 10:44
[2020-03-07] MEDS ORDERED: VANCOMYCIN INJECTION 1,250 MG in NS (IVPB) 250 ML IV SCH (12:00)
[2020-03-07 12:17] VITALS: BP 123/73
--- NOTE | 2020-03-07 13:54 | NUR ---
Note pt is currently NPO x2d. Note plan of care is to potentially extubate over the weekend. Would not recommend TF given current plan of care. However, if pt fails extubation, would recommend initiation of TF of Pulmocare via 60ml bolus feeds q4h with 30ml free water flushes before/after each bolus. Will continue to follow and reassess as pt needs, intake, and status change. Kerry Tao, MS RD LD [phone] cell
--- NOTE | 2020-03-07 14:36 | NUR ---
CONTACTED PT ELEANOR AND GAVE UPDATE ON PT CURRENT STATUS.
[2020-03-07 15:42] VITALS: BP 113/69
[2020-03-07] MEDS: ENOXAPARIN 40 MG/0.4 ML (LOVENOX) SYR SC SCH (16:30)
[2020-03-07] MEDS ORDERED: LACTATED RINGERS 500 ML IV ONE (16:30)
[2020-03-07 18:35] VITALS: BP 109/66
[2020-03-07] MEDS ORDERED: MIDAZOLAM 2 MG/2 ML (VERSED) VIAL ONE (21:59)
[2020-03-07 22:27] VITALS: BP 113/74
[2020-03-07] MEDS ORDERED: NS IV 500 ML 500 ML ONE (22:55)
[2020-03-07] MEDS ORDERED: MIDAZOLAM 2 MG/2 ML (VERSED) VIAL IVP ONE (23:00)
[2020-03-07] MEDS ORDERED: NS IV 500 ML 500 ML IV ONE (23:00)
[2020-03-07] MEDS ORDERED: MIDAZOLAM 2 MG/2 ML (VERSED) VIAL IM ONE (23:00)
[2020-03-08] MEDS: MIDAZOLAM DRIP PRE-MIX 100 ML IV SCH ×3 (01:10→23:35)
[2020-03-08 02:29] VITALS: BP 111/71
[2020-03-08] MEDS: RT-ALBUTEROL/IPRATROPIUM 3 ML (DUONEB) VIAL INH SCH ×6 (02:29→22:14)
[2020-03-08] MEDS: LACTATED RINGERS 1,000 ML IV SCH ×3 (02:51→17:57)
[2020-03-08] MEDS: fentaNYL DRIP PRE-MIX 250 ML IV SCH ×5 (02:51→21:41)
[2020-03-08 03:12] LABS: BASOPHILS % (AUTO) 0 % (0-10); EOSINOPHILS % (AUTO) 0 % (0-10); HEMATOCRIT 40 % (40-54); HEMOGLOBIN 12.1 g/dL (13.3-17.7); LYMPHOCYTES # (AUTO) 0.1 10^3/uL (1.0-4.0); LYMPHOCYTES % (AUTO) 1 % (12-44); MEAN CORPUSCULAR HEMOGLOBIN 30 pg (25-34); MEAN CORPUSCULAR HGB CONC 31 g/dL (32-36); MEAN CORPUSCULAR VOLUME 99 fL (80-99); MEAN PLATELET VOLUME 8.6 fL (9.0-12.2); MONOCYTES # (AUTO) 0.5 10^3/uL (0.0-1.0); MONOCYTES % (AUTO) 5 % (0-12); NEUTROPHILS % (AUTO) 93 % (42-75); PLATELET COUNT 197 10^3/uL (130-400); WHITE BLOOD COUNT 9.7 10^3/uL (4.3-11.0)
[2020-03-08 03:14] LABS: CHLORIDE 99 MMOL/L (98-107); POTASSIUM 4.9 MMOL/L (3.6-5.0); SODIUM 136 MMOL/L (135-145)
[2020-03-08 03:16] LABS: CALCIUM 7.5 MG/DL (8.5-10.1); GLUCOSE 122 MG/DL (70-105)
[2020-03-08 03:18] LABS: CARBON DIOXIDE 26 MMOL/L (21-32)
[2020-03-08 03:20] LABS: CREATININE SERUM 1.23 MG/DL (0.60-1.30); GFR ESTIMATED > 60; PHOSPHORUS 5.5 MG/DL (2.3-4.7)
[2020-03-08 03:21] LABS: BUN/CREATININE RATIO 28
[2020-03-08] MEDS: POTASSIUM CL 10MEQ/50ML IVPB 50 ML IV SCH (03:43)
[2020-03-08] MEDS: MAGNESIUM 1 GM/100 ML IVPB 100 ML IV SCH (03:44)
[2020-03-08] MEDS: KCL 20 MEQ TAB (K-DUR) PO SCH (03:44)
[2020-03-08 03:48] LABS: BAND NEUTROPHILS 4 %; LYMPHOCYTES % (MANUAL) 1 %; MONOCYTES % (MANUAL) 2 %; NEUTROPHILS % (MANUAL) 93 %; RBC MORPH NORMAL
[2020-03-08 04:22] LABS: ABG BASE EXCESS 1.5 MMOL/L (-2.5-2.5); ABG OXYGEN SATURATION 89 % (94-100); ABG PO2 64 MMHG (79-93); ABG TCO2 31.8 MMOL/L (21.0-31.0)
[2020-03-08 04:33] LABS: ABG PCO2 78 MMHG (35-45); ABG PH 7.19 (7.37-7.43)
[2020-03-08 04:34] LABS: ALLENS TEST YES-POS; INSPIRED O2 65%; PATIENT TEMP 35.8; VENTILATOR YES
--- NOTE | 2020-03-08 04:50 | Pulmonary Progress Note ---
Subjective Time Seen by a Provider: 04:45 Sepsis Event Evaluation Height, Weight, BMI Height: 5'8.00" Weight: 139lbs. 0.0oz. 63.479222rs; 21.1 BMI Method: Exam Exam Vital Signs Date Time Temp Pulse Resp B/P (MAP) Pulse Ox O2 Delivery O2 Flow Rate FiO2 03/08/20 03:04 35.4 03/08/20 03:04 Mechanical Ventilator 65.00 03/08/20 02:29 96 20 96 100 03/08/20 01:10 129/77 03/08/20 01:00 95 03/08/20 00:00 35.3 03/07/20 23:00 98 19 121/76 (91) 95 Mechanical Ventilator 55.00 03/07/20 22:27 102 20 92 55 03/07/20 22:00 125 20 113/74 (87) 100 Mechanical Ventilator 55.00 03/07/20 21:00 93 20 118/67 (84) 92 Mechanical Ventilator 55.00 03/07/20 20:56 Mechanical Ventilator 55 03/07/20 20:26 36.2 96 20 122/71 (88) 94 Mechanical Ventilator 55.00 03/07/20 20:00 96 20 122/71 (88) 93 Mechanical Ventilator 55.00 03/07/20 19:00 95 03/07/20 19:00 95 20 126/67 (86) 95 Mechanical Ventilator 55.00 03/07/20 18:35 101 21 89 50 03/07/20 18:00 100 20 112/69 (87) 89 Mechanical Ventilator 50.00 03/07/20 17:45 105 14 137/78 (96) 92 03/07/20 17:43 107 9 145/82 (104) 94 03/07/20 17:30 124 8 171/109 (131) 76 03/07/20 17:15 94 19 115/73 (89) 94 03/07/20 17:00 92 20 124/74 (92) 95 Mechanical Ventilator 50.00 03/07/20 16:45 84 14 116/61 (84) 95 03/07/20 16:30 35.6 03/07/20 16:30 92 14 117/69 (82) 95 03/07/20 16:15 90 14 109/65 (81) 95 03/07/20 16:00 91 12 107/64 (83) 95 Mechanical Ventilator 50.00 03/07/20 15:45 97 19 117/71 (86) 93 03/07/20 15:42 97 20 91 75 03/07/20 15:30 100 19 113/69 (85) 89 20 15:15 111 0 158/85 (108) 90 03/07/20 15:00 90 16 122/78 (91) 93 Mechanical Ventilator 50.00 03/07/20 14:45 89 20 123/74 (88) 93 03/07/20 14:30 86 20 121/76 (91) 93 03/07/20 14:15 85 19 115/69 (87) 93 03/07/20 14:00 87 20 117/72 (90) 93 Mechanical Ventilator 50.00 03/07/20 13:45 86 20 113/71 (84) 93 03/07/20 13:30 89 19 118/68 (85) 93 03/07/20 13:15 87 19 114/69 (87) 92 03/07/20 13:00 83 03/07/20 13:00 86 20 113/67 (86) 92 Mechanical Ventilator 50.00 03/07/20 12:45 83 19 115/69 (82) 93 03/07/20 12:30 84 19 114/66 (85) 92 03/07/20 12:26 37.0 03/07/20 12:17 87 20 92 60 03/07/20 12:15 87 19 123/73 (87) 92 03/07/20 12:00 86 20 115/71 (84) 93 Mechanical Ventilator 50.00 03/07/20 11:45 85 14 109/75 (85) 93 03/07/20 11:30 87 20 117/68 (89) 92 03/07/20 11:15 87 14 112/72 (86) 92 03/07/20 11:00 86 12 125/67 (93) 93 Mechanical Ventilator 50.00 03/07/20 10:45 87 20 123/77 (91) 92 03/07/20 10:30 87 10 128/73 (90) 92 03/07/20 10:15 89 20 126/73 (96) 92 03/07/20 10:00 86 19 124/77 (95) 91 Mechanical Ventilator 50.00 03/07/20 09:45 86 20 127/75 (92) 92 03/07/20 09:30 85 19 118/72 (85) 92 03/07/20 09:15 85 115/73 (88) 03/07/20 09:00 86 19 117/72 (89) 92 Mechanical Ventilator 50.00 03/07/20 09:00 Mechanical Ventilator 45 03/07/20 08:45 86 19 111/73 (85) 92 03/07/20 08:30 87 19 112/72 (86) 92 03/07/20 08:15 84 14 103/75 (80) 92 03/07/20 08:12 36.0 03/07/20 08:00 85 10 109/71 (90) 92 Mechanical Ventilator 50.00 03/07/20 07:45 82 14 132/71 (92) 94 03/07/20 07:34 83 22 87 60 03/07/20 07:30 82 14 144/84 (112) 94 03/07/20 07:15 80 20 125/74 (91) 88 03/07/20 07:00 86 03/07/20 07:00 79 19 126/80 (95) 88 Mechanical Ventilator 50.00 03/07/20 06:45 77 19 126/73 (92) 90 03/07/20 06:30 75 20 91 03/07/20 06:15 74 20 92 03/07/20 06:00 75 19 119/68 (85) 92 Mechanical Ventilator 50.00 03/07/20 05:25 75 03/07/20 05:00 75 20 95/68 (77) 94 Mechanical Ventilator 50.00 I & O 03/08/20 07:00 Intake Total 740 ml Output Total 550 ml Balance 190 ml Height & Weight Height: 5'8.00" Weight: 139lbs. 0.0oz. 63.463798ht; 21.1 BMI Method: General Appearance: No Apparent Distress, Chronically ill, Thin Respiratory: Lungs Clear, Decreased Breath Sounds Cardiovascular: Regular Rate, Rhythm Capillary Refill: Less Than 3 Seconds Neurologic/Psychiatric: Other (sedated) Results Lab Laboratory Tests 03/07/20 01:50 03/08/20 02:50 Assessment/Plan Assessment/Plan Acute on chronic respiratory failure -On vent 370, 20, peep 5 65% -Increase to vt 400, RR to 24 and PEEP to 10. -On propofol and fentanyl -COVID rapid and PCR negative -MRSA swab negative -Started TF -Check CTA r/o PE -Give theraputic dose lovenox now COPD with acute exacerbation -On vent -On Cefepime and Vanc -continue Duoneb -MRSA screen negative -repeat ABG DVT/GI ppx: -on Lovenox and Protonix BARBY CAPELLAN DO Mar 08, 2020 04:50
[2020-03-08] MEDS ORDERED: LACTATED RINGERS 1,000 ML IV SCH (05:00)
[2020-03-08] MEDS ORDERED: ENOXAPARIN 40 MG/0.4 ML (LOVENOX) SYR SC SCH (05:00)
--- NOTE | 2020-03-08 05:29 | Diagnostic Imaging Report ---
EXAMINATION: Portable erect AP chest at 1:22 AM INDICATION: Dyspnea The heart is stable in size when compared to the prior exam of 03/07/2020. The overall appearance of the lungs has not changed significantly. The left retrocardiac region, however, is not well penetrated and difficult to assess. The mediastinum is not widened. The osseous structures are intact. The supportive tubes and lines seem similar in position. IMPRESSION: The overall appearance of the chest is stable when compared to the prior exam. However, the left retrocardiac region is not well penetrated and consequently difficult to assess. A follow-up study would be recommended for continued evaluation. Dictated by: Dictated on workstation # [id number]
[2020-03-08] MEDS: methylPREDNISolone 40 MG/ML (Solu-MEDROL) VIAL IV SCH ×4 (06:20→23:42)
[2020-03-08] MEDS: PROPOFOL DRIP (ICU) 100 ML IV SCH ×2 (06:20→17:27)
[2020-03-08] MEDS: ENOXAPARIN 80 MG/0.8 ML (LOVENOX) SYR SC SCH ×2 (06:21→16:18)
[2020-03-08] MEDS: CEFEPIME INJECTION 2,000 MG in WATER (STERILE) FOR INJECTION 20 ML IV SCH ×2 (06:21→16:18)
[2020-03-08 06:53] VITALS: BP 117/69
[2020-03-08] MEDS: DOCUSATE SODIUM 10 MG/ML 10 ML UDC (COLACE) PO SCH ×2 (08:30→21:38)
[2020-03-08] MEDS: PANTOPRAZOLE 40 MG (PROTONIX) VIAL IV SCH (08:30)
[2020-03-08 08:58] LABS: ABG BASE EXCESS -0.6 MMOL/L (-2.5-2.5); ABG OXYGEN SATURATION 93 % (94-100); ABG PO2 76 MMHG (79-93); ABG TCO2 29.4 MMOL/L (21.0-31.0)
[2020-03-08 09:00] LABS: ABG PCO2 72 MMHG (35-45); ABG PH 7.19 (7.37-7.43); ALLENS TEST YES-POS; INSPIRED O2 65%; PATIENT TEMP 35.9; VENTILATOR YES
[2020-03-08] MEDS ORDERED: NS 100 ML (IVPB) BAG IV ONE (11:00)
[2020-03-08] MEDS ORDERED: IOHEXOL 350 MG/ML 100 ML (OMNIPAQUE 350) VIAL IV ONE (11:00)
[2020-03-08] MEDS ORDERED: HOLD METFORMIN - RECEIVED CONTRAST 20 ML VIAL IV SCH (11:00)
[2020-03-08 11:20] LABS: ABG BASE EXCESS 1.8 MMOL/L (-2.5-2.5); ABG OXYGEN SATURATION 77 % (94-100); ABG PCO2 58 MMHG (35-45); ABG PO2 42 MMHG (79-93); ABG TCO2 29.6 MMOL/L (21.0-31.0)
[2020-03-08 11:26] LABS: ALLENS TEST YES-POS; INSPIRED O2 65%; PATIENT TEMP 36.2; VENTILATOR YES
--- NOTE | 2020-03-08 12:25 | Diagnostic Imaging Report ---
INDICATION: Dyspnea, rigid abdomen CTA chest, abdomen and pelvis Thin axial sections through the chest, abdomen and pelvis are obtained following intravenous contrast bolus. Multiplanar MIP images were reconstructed and reviewed. All CT scans use one or more of the following dose optimizing techniques: automated exposure control, MA and/or KvP adjustment based on patient size and exam type or iterative reconstruction. COMPARISON: CT chest of 06/06/2019. FINDINGS: CHEST: No pulmonary emboli. No features of right ventricular strain or pulmonary hypertension. Normal caliber thoracic aorta without features of dissection. Heart is normal in size without pericardial effusion. There is some enhancing atelectasis in the bilateral lower lobes. Trace bilateral pleural effusions. No pneumothorax. ET tube has tip 4.5 cm above the eddie. Severe emphysema is present. No consolidations that suggest pneumonia. Numerous small mediastinal lymph nodes are likely reactive in nature. No supraclavicular or axillary lymphadenopathy. Right PICC has tip terminating in the lower SVC. ABDOMEN AND PELVIS: No free intraperitoneal air or fluid. Body wall edema is present throughout the abdomen and pelvis. The liver has hypoattenuation suggestive of hepatic steatosis. Cholelithiasis is present. No features of acute cholecystitis. No focal hepatic lesion. The spleen and pancreas are normal. No adrenal mass. Kidneys enhance symmetrically without mass, lesion or obstruction. The urinary bladder is decompressed by a Hyde catheter. Normal appendix. No pericolonic inflammatory change. The stomach is decompressed by enteric tube. No abdominal or pelvic lymphadenopathy. Postoperative changes with decompression in the lower lumbar spine. No concerning focal osseous lesions. IMPRESSION: 1. No pulmonary emboli. 2. Small bilateral pleural effusions with associated relaxation atelectasis. No CT features of pneumonia or pulmonary edema. 3. No acute abnormality in the abdomen or pelvis. 4. Diffuse body wall edema/anasarca. Dictated by: Dictated on workstation # [id number]
[2020-03-08 15:52] VITALS: BP 157/91
[2020-03-08] MEDS ORDERED: LORazepam INJ 2 MG/ML (ATIVAN) VIAL IVP ONE (16:05)
[2020-03-08 22:15] VITALS: BP 121/70
[2020-03-09] MEDS: fentaNYL DRIP PRE-MIX 250 ML IV SCH ×6 (01:03→21:15)
[2020-03-09] MEDS: LACTATED RINGERS 1,000 ML IV SCH ×4 (01:03→21:41)
[2020-03-09 02:56] LABS: ABG BASE EXCESS 1.8 MMOL/L (-2.5-2.5); ABG OXYGEN SATURATION 98 % (94-100); ABG PCO2 52 MMHG (35-45); ABG PO2 105 MMHG (79-93); ABG TCO2 28.7 MMOL/L (21.0-31.0); ALLENS TEST POSITIVE
[2020-03-09 02:57] LABS: INSPIRED O2 65; PATIENT TEMP 36.8; VENTILATOR YES
[2020-03-09] MEDS: RT-ALBUTEROL/IPRATROPIUM 3 ML (DUONEB) VIAL INH SCH ×6 (02:59→21:20)
[2020-03-09 03:00] LABS: ABG PH 7.34 (7.37-7.43)
[2020-03-09 03:01] VITALS: BP 183/104
[2020-03-09 03:06] LABS: BASOPHILS % (AUTO) 0 % (0-10); EOSINOPHILS % (AUTO) 0 % (0-10); HEMATOCRIT 35 % (40-54); HEMOGLOBIN 11.2 g/dL (13.3-17.7); LYMPHOCYTES # (AUTO) 0.3 10^3/uL (1.0-4.0); LYMPHOCYTES % (AUTO) 3 % (12-44); MEAN CORPUSCULAR HEMOGLOBIN 31 pg (25-34); MEAN CORPUSCULAR HGB CONC 32 g/dL (32-36); MEAN CORPUSCULAR VOLUME 96 fL (80-99); MEAN PLATELET VOLUME 8.8 fL (9.0-12.2); MONOCYTES # (AUTO) 0.5 10^3/uL (0.0-1.0); MONOCYTES % (AUTO) 6 % (0-12); NEUTROPHILS # (AUTO) 7.7 10^3/uL (1.8-7.8); NEUTROPHILS % (AUTO) 90 % (42-75); PLATELET COUNT 205 10^3/uL (130-400); WHITE BLOOD COUNT 8.6 10^3/uL (4.3-11.0)
[2020-03-09 03:09] LABS: POTASSIUM 4.9 MMOL/L (3.6-5.0)
[2020-03-09 03:10] LABS: CALCIUM 7.8 MG/DL (8.5-10.1)
[2020-03-09 03:14] LABS: PHOSPHORUS 3.5 MG/DL (2.3-4.7)
[2020-03-09 03:15] LABS: CREATININE SERUM 1.38 MG/DL (0.60-1.30)
[2020-03-09] MEDS: PROPOFOL DRIP (ICU) 100 ML IV SCH ×2 (03:37→14:32)
--- NOTE | 2020-03-09 04:14 | Pulmonary Progress Note ---
Subjective Time Seen by a Provider: 04:08 Sepsis Event Evaluation Height, Weight, BMI Height: 5'8.00" Weight: 139lbs. 0.0oz. 63.735902vu; 21.1 BMI Method: Exam Exam Vital Signs Date Time Temp Pulse Resp B/P (MAP) Pulse Ox O2 Delivery O2 Flow Rate FiO2 03/09/20 03:57 36.8 03/09/20 03:37 149/83 03/09/20 03:01 97 24 95 65 03/09/20 01:00 94 03/09/20 00:00 36.6 03/08/20 23:35 123 03/08/20 23:00 116 19 147/85 (105) 93 Mechanical Ventilator 65.00 03/08/20 22:15 116 24 90 65 03/08/20 22:00 94 23 121/70 (87) 93 Mechanical Ventilator 65.00 03/08/20 21:00 123 24 139/77 (97) 91 Mechanical Ventilator 65.00 03/08/20 20:34 94 Mechanical Ventilator 65 03/08/20 20:00 90 24 117/76 (90) 94 Mechanical Ventilator 65.00 03/08/20 19:29 37.1 93 24 113/67 (82) 94 Mechanical Ventilator 65.00 03/08/20 19:00 112 23 117/67 (84) 94 Mechanical Ventilator 65.00 03/08/20 19:00 111 03/08/20 18:03 122 24 90 65 03/08/20 18:00 81 23 120/70 (87) 94 Mechanical Ventilator 65.00 03/08/20 17:45 84 24 117/69 (80) 94 03/08/20 17:30 84 23 109/64 (81) 93 03/08/20 17:27 82 104/61 03/08/20 17:15 82 23 104/61 (79) 94 03/08/20 17:00 82 23 97/58 (74) 94 Mechanical Ventilator 65.00 03/08/20 16:45 87 23 96/58 (72) 94 03/08/20 16:30 96 23 107/63 (77) 94 03/08/20 16:15 114 24 139/88 (108) 93 03/08/20 16:00 117 15 151/93 (112) 93 Mechanical Ventilator 65.00 03/08/20 15:52 120 25 92 65 12/19/20 15:51 36.8 03/08/20 15:45 112 24 157/91 (107) 93 03/08/20 15:30 114 6 147/95 (115) 93 03/08/20 15:15 82 23 141/84 (103) 94 03/08/20 15:00 81 24 140/80 (103) 94 Mechanical Ventilator 65.00 03/08/20 14:45 80 23 134/76 (96) 95 03/08/20 14:30 81 24 130/74 (96) 95 03/08/20 14:24 81 24 124/74 03/08/20 14:15 82 23 124/74 (92) 95 03/08/20 14:00 89 24 134/78 (97) 95 Mechanical Ventilator 65.00 03/08/20 13:45 95 23 139/78 (100) 95 03/08/20 13:30 115 10 165/95 (107) 91 03/08/20 13:15 81 23 119/69 (86) 94 03/08/20 13:00 83 23 115/71 (88) 94 Mechanical Ventilator 65.00 03/08/20 12:51 88 03/08/20 12:45 80 24 107/66 (84) 95 03/08/20 12:30 82 24 98/60 (75) 95 03/08/20 12:23 36.8 03/08/20 12:15 89 23 96/57 (73) 95 03/08/20 12:00 95 21 100/58 (71) Mechanical Ventilator 65.00 03/08/20 11:45 86 24 94 03/08/20 11:30 90 24 109/66 (85) 95 03/08/20 11:15 90 23 113/69 (84) 94 03/08/20 11:00 89 24 102/59 (75) 94 Mechanical Ventilator 65.00 03/08/20 10:45 100 24 118/64 (81) 93 03/08/20 10:30 101 27 130/72 (95) 91 03/08/20 10:15 91 24 122/72 (89) 94 03/08/20 10:00 89 24 118/68 (87) 94 Mechanical Ventilator 65.00 03/08/20 09:45 90 23 121/72 (92) 93 03/08/20 09:30 88 23 119/66 (85) 95 03/08/20 09:15 92 24 116/65 (84) 95 03/08/20 09:00 96 Mechanical Ventilator 65 03/08/20 09:00 96 24 114/64 (78) 95 Mechanical Ventilator 65.00 03/08/20 08:45 109 112 151/77 (103) 92 03/08/20 08:30 92 129/73 (94) 03/08/20 08:15 92 124/66 (88) 03/08/20 08:00 96 23 120/68 (86) 94 Mechanical Ventilator 65.00 03/08/20 07:45 102 24 131/73 (96) 92 03/08/20 07:36 35.7 03/08/20 07:30 92 24 122/68 (87) 95 03/08/20 07:15 91 24 113/61 (80) 95 03/08/20 07:00 91 03/08/20 07:00 89 23 115/65 (83) 94 Mechanical Ventilator 65.00 03/08/20 06:53 90 24 91 65 03/08/20 06:45 93 24 117/69 (84) 91 03/08/20 06:30 96 20 129/78 (93) 92 03/08/20 06:20 130/77 03/08/20 06:15 96 19 130/77 (97) 92 03/08/20 06:00 96 130 130/77 (94) 77 Mechanical Ventilator 65.00 03/08/20 05:00 96 19 117/68 (84) 92 Mechanical Ventilator 65.00 I & O 03/09/20 07:00 Intake Total 2480 ml Output Total 1200 ml Balance 1280 ml Height & Weight Height: 5'8.00" Weight: 139lbs. 0.0oz. 63.132633hl; 21.1 BMI Method: General Appearance: No Apparent Distress, WD/WN, Chronically ill, Thin Respiratory: Decreased Breath Sounds Cardiovascular: Regular Rate, Rhythm Capillary Refill: Less Than 3 Seconds Neurologic/Psychiatric: Other (sedated) Results Lab Laboratory Tests 03/08/20 02:50 03/09/20 02:45 Assessment/Plan Assessment/Plan Acute on chronic respiratory failure -On vent 370, 20, peep 5 65% -Increase to vt 400, RR to 24 and PEEP to 10. -On propofol, Versed and fentanyl -COVID rapid and PCR negative -MRSA swab negative -Started TF -Check CTA r/o PE -Give theraputic dose lovenox now Psychosis -Start PRN haldol and Ativan -Scheduled Risperadol COPD with acute exacerbation -On vent -Solumedrol 40Q6 -Duoneb -On Cefepime and Vanc -continue Duoneb -MRSA screen negative -repeat ABG DVT/GI ppx: -on Lovenox and Protonix BARBY CAPELLAN DO Mar 09, 2020 04:14
[2020-03-09] MEDS ORDERED: LACTATED RINGERS 1,000 ML IV SCH (04:15)
[2020-03-09] MEDS ORDERED: ENOXAPARIN 40 MG/0.4 ML (LOVENOX) SYR ONE (04:37)
[2020-03-09] MEDS: POTASSIUM CL 10MEQ/50ML IVPB 50 ML IV SCH (04:38)
[2020-03-09] MEDS: KCL 20 MEQ TAB (K-DUR) PO SCH (04:39)
[2020-03-09] MEDS: MAGNESIUM 1 GM/100 ML IVPB 100 ML IV SCH (04:39)
[2020-03-09] MEDS: ENOXAPARIN 40 MG/0.4 ML (LOVENOX) SYR SC SCH ×2 (04:41→05:33)
[2020-03-09] MEDS: CEFEPIME INJECTION 2,000 MG in WATER (STERILE) FOR INJECTION 20 ML IV SCH ×2 (04:42→17:40)
[2020-03-09] MEDS: LORazepam INJ 2 MG/ML (ATIVAN) VIAL IV PRN ×3 (04:51→22:12)
[2020-03-09] MEDS: HALOPERIDOL 5 MG/ML (HALDOL) VIAL IM PRN (04:57)
[2020-03-09] MEDS: methylPREDNISolone 40 MG/ML (Solu-MEDROL) VIAL IV SCH ×3 (05:38→17:40)
[2020-03-09 07:30] VITALS: BP 165/91
--- NOTE | 2020-03-09 08:21 | Diagnostic Imaging Report ---
EXAMINATION: Portable erect AP chest at 2:49 AM INDICATION: Respiratory distress The heart size is stable when compared to the prior exam of 03/08/2020. As on the prior exam, the left retrocardiac region is not well penetrated. There could be some atelectasis/infiltrate and/or fluid in this area. The left upper lung and right lung are generally clear. The mediastinum is not widened. The osseous structures are intact. The supportive tubes and lines seen previously appears similar in position. IMPRESSION: The overall appearance of the chest has not changed significantly since the prior exam. However, there is still a question of pneumonia/atelectasis and fluid involving the left lung base. Clinical follow-up is recommended. Dictated by: Dictated on workstation # [id number]
[2020-03-09] MEDS: risperiDONE 1 MG (RisperDAL) TAB PO SCH ×2 (08:58→21:39)
[2020-03-09] MEDS: PANTOPRAZOLE 40 MG (PROTONIX) VIAL IV SCH (08:58)
[2020-03-09] MEDS: DOCUSATE SODIUM 10 MG/ML 10 ML UDC (COLACE) PO SCH ×2 (08:58→21:39)
[2020-03-09] MEDS: MIDAZOLAM DRIP PRE-MIX 100 ML IV SCH ×2 (09:47→17:44)
[2020-03-09 11:47] VITALS: BP 158/83
[2020-03-09 14:59] VITALS: BP 158/83
[2020-03-09 18:17] VITALS: BP 151/87
[2020-03-09 21:20] VITALS: BP 163/92
[2020-03-10] MEDS: methylPREDNISolone 40 MG/ML (Solu-MEDROL) VIAL IV SCH ×4 (00:15→18:30)
[2020-03-10] MEDS: LORazepam INJ 2 MG/ML (ATIVAN) VIAL IV PRN ×3 (00:15→04:54)
[2020-03-10] MEDS: fentaNYL DRIP PRE-MIX 250 ML IV SCH ×8 (00:30→21:08)
[2020-03-10 01:25] VITALS: BP 162/94
[2020-03-10] MEDS: RT-ALBUTEROL/IPRATROPIUM 3 ML (DUONEB) VIAL INH SCH ×6 (01:25→21:13)
[2020-03-10] MEDS: PROPOFOL DRIP (ICU) 100 ML IV SCH ×3 (02:19→14:33)
[2020-03-10 02:24] LABS: ABG BASE EXCESS 2.8 MMOL/L (-2.5-2.5); ABG OXYGEN SATURATION 93 % (94-100); ABG PCO2 46 MMHG (35-45); ABG PH 7.39 (7.37-7.43); ABG PO2 67 MMHG (79-93); ABG TCO2 28.7 MMOL/L (21.0-31.0)
[2020-03-10 02:25] LABS: ALLENS TEST POSITIVE; INSPIRED O2 65; PATIENT TEMP 36.7; VENTILATOR YES
[2020-03-10 02:26] LABS: BASOPHILS % (AUTO) 0 % (0-10); EOSINOPHILS % (AUTO) 0 % (0-10); HEMATOCRIT 34 % (40-54); LYMPHOCYTES # (AUTO) 0.2 10^3/uL (1.0-4.0); LYMPHOCYTES % (AUTO) 3 % (12-44); MEAN CORPUSCULAR HEMOGLOBIN 31 pg (25-34); MEAN CORPUSCULAR HGB CONC 32 g/dL (32-36); MEAN CORPUSCULAR VOLUME 95 fL (80-99); MEAN PLATELET VOLUME 8.7 fL (9.0-12.2); MONOCYTES # (AUTO) 0.5 10^3/uL (0.0-1.0); MONOCYTES % (AUTO) 6 % (0-12); NEUTROPHILS # (AUTO) 6.8 10^3/uL (1.8-7.8); NEUTROPHILS % (AUTO) 90 % (42-75); PLATELET COUNT 205 10^3/uL (130-400); WHITE BLOOD COUNT 7.6 10^3/uL (4.3-11.0)
[2020-03-10 02:39] LABS: CHLORIDE 102 MMOL/L (98-107); POTASSIUM 5.1 MMOL/L (3.6-5.0); SODIUM 136 MMOL/L (135-145)
[2020-03-10 02:40] LABS: CALCIUM 7.7 MG/DL (8.5-10.1)
[2020-03-10 02:41] LABS: GLUCOSE 132 MG/DL (70-105); TRIGLYCERIDES 338 MG/DL (<150)
[2020-03-10 02:43] LABS: CARBON DIOXIDE 24 MMOL/L (21-32)
[2020-03-10 02:45] LABS: CREATININE SERUM 1.13 MG/DL (0.60-1.30); GFR ESTIMATED > 60; PHOSPHORUS 3.1 MG/DL (2.3-4.7)
[2020-03-10 02:46] LABS: BUN/CREATININE RATIO 38
[2020-03-10] MEDS: LACTATED RINGERS 1,000 ML IV SCH (03:51)
[2020-03-10] MEDS: CEFEPIME INJECTION 2,000 MG in WATER (STERILE) FOR INJECTION 20 ML IV SCH (03:51)
[2020-03-10] MEDS: MIDAZOLAM DRIP PRE-MIX 100 ML IV SCH ×2 (03:52→17:19)
--- NOTE | 2020-03-10 05:20 | Pulmonary Progress Note ---
Subjective Time Seen by a Provider: 05:15 Subjective/Events-last exam Pt is sedated on vent. Sepsis Event Evaluation Height, Weight, BMI Height: 5'8.00" Weight: 139lbs. 0.0oz. 63.630554au; 21.1 BMI Method: Exam Exam Vital Signs Date Time Temp Pulse Resp B/P (MAP) Pulse Ox O2 Delivery O2 Flow Rate FiO2 03/10/20 04:00 86 24 182/148 (159) 95 Mechanical Ventilator 65.00 03/10/20 03:52 86 24 162/94 03/10/20 03:00 88 24 185/115 (138) 94 Mechanical Ventilator 65.00 03/10/20 02:19 86 162/94 03/10/20 02:00 87 23 161/101 (121) 94 Mechanical Ventilator 65.00 03/10/20 01:25 86 24 94 65 03/10/20 01:00 88 24 157/100 (119) 95 Mechanical Ventilator 65.00 03/10/20 01:00 88 03/10/20 00:05 36.7 03/10/20 00:00 88 23 152/92 (112) 96 Mechanical Ventilator 65.00 03/09/20 23:00 101 23 150/102 (118) 94 Mechanical Ventilator 65.00 03/09/20 22:00 109 23 203/118 (146) 94 Mechanical Ventilator 65.00 03/09/20 21:20 78 24 94 65 03/09/20 21:00 Mechanical Ventilator 60 03/09/20 21:00 78 24 161/92 (115) 94 Mechanical Ventilator 65.00 03/09/20 20:00 85 23 166/91 (116) 94 Mechanical Ventilator 65.00 03/09/20 19:39 36.5 03/09/20 19:00 87 03/09/20 19:00 87 23 153/84 (107) 93 Mechanical Ventilator 65.00 03/09/20 18:17 89 24 92 65 03/09/20 18:00 95 24 164/108 (123) 92 Mechanical Ventilator 65.00 03/09/20 17:45 94 24 169/100 (123) 93 03/09/20 17:44 168/104 03/09/20 17:37 101 24 168/104 (119) 93 03/09/20 17:30 105 23 176/118 (129) 93 03/09/20 17:15 86 24 171/96 (122) 94 03/09/20 17:00 85 24 173/89 (115) 94 Mechanical Ventilator 65.00 03/09/20 16:45 86 24 171/90 (101) 94 20 16:30 86 24 166/95 (118) 94 03/09/20 16:15 90 24 170/95 (119) 94 03/09/20 16:00 93 23 166/102 (117) 93 Mechanical Ventilator 65.00 03/09/20 15:50 36.6 03/09/20 15:45 87 24 166/90 (116) 94 03/09/20 15:30 87 24 168/90 (118) 94 03/09/20 15:15 87 23 174/89 (117) 94 03/09/20 15:00 88 24 173/87 (116) 94 Mechanical Ventilator 65.00 03/09/20 14:59 87 24 94 65 03/09/20 14:45 89 24 168/89 (114) 94 03/09/20 14:32 167/98 03/09/20 14:30 90 23 167/98 (123) 94 03/09/20 14:15 86 23 158/93 (105) 94 03/09/20 14:00 87 23 159/89 (110) 95 03/09/20 13:45 89 24 162/92 (108) 95 Mechanical Ventilator 65.00 03/09/20 13:30 89 163/92 (118) 03/09/20 13:15 90 24 161/90 (112) 95 03/09/20 13:00 77 03/09/20 13:00 92 167/90 (116) Mechanical Ventilator 65.00 03/09/20 12:45 92 23 169/90 (110) 95 03/09/20 12:30 91 23 169/96 (120) 96 03/09/20 12:15 93 21 163/96 (120) 94 03/09/20 12:12 36.6 03/09/20 12:00 78 23 154/84 (110) 94 Mechanical Ventilator 65.00 03/09/20 11:47 79 24 94 65 03/09/20 11:45 76 23 158/83 (116) 94 03/09/20 11:30 77 24 157/84 (113) 94 03/09/20 11:15 76 23 154/93 (111) 94 03/09/20 11:00 74 23 148/82 (105) 94 Mechanical Ventilator 65.00 03/09/20 10:45 75 24 142/79 (110) 94 20 10:30 76 23 147/77 (90) 94 03/09/20 10:15 80 24 149/77 (110) 94 03/09/20 10:00 84 23 154/82 (112) 94 Mechanical Ventilator 65.00 03/09/20 09:47 82 162/85 03/09/20 09:45 81 23 162/85 (116) 94 03/09/20 09:30 83 19 162/83 (117) 94 03/09/20 09:15 82 24 157/83 (116) 94 03/09/20 09:00 82 23 152/84 (104) 94 Mechanical Ventilator 65.00 03/09/20 08:45 76 24 152/82 (107) 94 03/09/20 08:30 80 23 146/76 (101) 94 03/09/20 08:15 77 23 141/74 (100) 94 03/09/20 08:00 Mechanical Ventilator 65 03/09/20 08:00 80 23 144/71 (98) 93 Mechanical Ventilator 65.00 03/09/20 07:45 78 25 94 03/09/20 07:30 83 24 94 65 03/09/20 07:30 80 23 165/91 (119) 94 03/09/20 07:16 37.0 03/09/20 07:15 80 18 160/86 (119) 94 03/09/20 07:00 79 24 162/88 (116) 94 Mechanical Ventilator 65.00 03/09/20 07:00 79 03/09/20 06:45 81 18 160/87 (114) 94 03/09/20 06:30 88 19 167/91 (120) 94 03/09/20 06:15 80 16 158/82 (112) 94 03/09/20 06:00 82 19 158/82 (107) 95 Mechanical Ventilator 65.00 I & O 03/10/20 07:00 Intake Total 3240 ml Output Total 1750 ml Balance 1490 ml Height & Weight Height: 5'8.00" Weight: 139lbs. 0.0oz. 63.537582lz; 21.1 BMI Method: General Appearance: No Apparent Distress, WD/WN, Chronically ill, Thin Respiratory: Decreased Breath Sounds Cardiovascular: Regular Rate, Rhythm Capillary Refill: Less Than 3 Seconds Neurologic/Psychiatric: Other (sedated) Results Lab Laboratory Tests 03/09/20 02:45 03/10/20 02:15 Assessment/Plan Assessment/Plan Acute on chronic respiratory failure - vt 400, RR to 24 and PEEP to 10. -- Increase PEEP to 14 -Repeat COVID testing secondary to respiratory status -Give 40mg of Lasix BID -On propofol, Versed and fentanyl -COVID rapid and PCR negative -MRSA swab negative -Started TF -CTA r/o PE - Neg for PE -CHeck DDIMER and PCT Pulmonary edema and atelectasis -Start Lasix BID 40mg -Decrease IVF to KVO Psychosis -Start PRN haldol and Ativan -Scheduled Risperadol Hypothyroid -Restart synthroid COPD with acute exacerbation -On vent -Solumedrol 40Q6 -Duoneb -On Cefepime-- D/C after today's dose. -continue Duoneb -MRSA screen negative -repeat ABG DVT/GI ppx: -on Lovenox and Protonix BARBY CAPELLAN DO Mar 10, 2020 05:20
[2020-03-10] MEDS ORDERED: FUROSEMIDE 40 MG/4 ML INJ (LASIX) IVP ONE (05:30)
[2020-03-10] MEDS ORDERED: DexMEDEtomidine PRE MIX 100 ML IV SCH (05:30)
[2020-03-10] MEDS ORDERED: risperiDONE 1 MG (RisperDAL) TAB PO ONE (05:30)
[2020-03-10] MEDS: HALOPERIDOL 5 MG/ML (HALDOL) VIAL IM PRN (05:54)
[2020-03-10] MEDS: hydrALAZINE (APESOLINE) 20 MG/ML VIAL IV PRN (05:54)
[2020-03-10] MEDS: ENOXAPARIN 40 MG/0.4 ML (LOVENOX) SYR SC SCH (05:54)
[2020-03-10] MEDS: risperiDONE 1 MG (RisperDAL) TAB PO SCH ×2 (05:55→20:17)
[2020-03-10] MEDS: morphine INJ 4 MG/ML 1 ML (VIAL/SYRINGE) IVP PRN (05:55)
[2020-03-10] MEDS: LEVOTHYROXINE 100 MCG (LEVOTHROID) TAB PO SCH (05:55)
[2020-03-10] MEDS: MAGNESIUM 1 GM/100 ML IVPB 100 ML IV SCH (06:34)
[2020-03-10] MEDS: POTASSIUM CL 10MEQ/50ML IVPB 50 ML IV SCH (06:34)
[2020-03-10] MEDS: KCL 20 MEQ TAB (K-DUR) PO SCH (06:35)
[2020-03-10 07:30] VITALS: BP 145/92
--- NOTE | 2020-03-10 08:15 | Diagnostic Imaging Report ---
INDICATION: Upper extremity swelling. Grayscale, color-flow and duplex Doppler evaluation if right upper extremity deep venous system was performed. Right internal jugular vein as well as the right subclavian and axillary veins are widely patent. The brachial vein is patent. The basilic, cephalic, radial and ulnar veins are patent. No thrombus is identified. No fluid collection is seen. IMPRESSION: No evidence of right upper extremity DVT. Dictated by: Dictated on workstation # [id number]
--- NOTE | 2020-03-10 08:20 | Diagnostic Imaging Report ---
Indication: Ventilator support. Time of exam: 2:29 AM Correlation is made with prior chest from one day earlier. ET tube has tip above the eddie. NG tube passes below the diaphragm. Right upper extremity PICC line has tip overlying SVC. There is central congestion. There appears to be atelectasis in both bases, increased since yesterday, significant effusion or pneumothorax is seen. IMPRESSION: Increasing bibasilar infiltrate or atelectasis when compared to examination one day earlier. Dictated by: Dictated on workstation # [id number]
[2020-03-10] MEDS: PANTOPRAZOLE 40 MG (PROTONIX) VIAL IV SCH (08:22)
[2020-03-10] MEDS: DOCUSATE SODIUM 10 MG/ML 10 ML UDC (COLACE) PO SCH ×2 (08:22→20:17)
[2020-03-10] MEDS: GABAPENTIN 300 MG (NEURONTIN) CAP PO SCH ×2 (08:23→20:18)
[2020-03-10] MEDS: meTOprolol TARTRATE 25 MG (LOPRESSOR) TABLET PO SCH ×2 (08:23→20:17)
[2020-03-10] MEDS: amLODIPine 5 MG (NORVASC) TAB PO SCH (08:23)
[2020-03-10 10:07] VITALS: BP 149/72
--- NOTE | 2020-03-10 12:12 | NUR ---
LM WITH , ELEANOR, AT NUMBER PROVIDED ON CHART. WILL AWAIT RETURN CALL FOR UPDATE.
[2020-03-10 14:08] VITALS: BP 149/72
--- NOTE | 2020-03-10 16:17 | NUR ---
SPOKE WITH PATIENTS , KG, AT [phone]. UPDATED ON PATIENT CONDITION. THIS RN CLARIFIED CONTACT INFORMATION AND NEW POLICY REGARDING UPDATES. SHE IS VERY AGREEABLE TO THIS. ALSO NOTIFIED HER THAT DR CAPELLAN WOULD BE HAPPY TO CALL IF SHE REQUESTS THIS. SHE STATES THAT SHE IS OK WITHOUT A CALL FROM HIM AT THIS TIME. ADVISED HER THAT ALL SHE HAD TO DO WAS ASK AND DR CAPELLAN WOULD CALL THE NEXT MORNING. SHE VOICED HER UNDERSTANDING OF THIS. ALSO SPOKE WITH PATIENTS SISTER, GUILLERMINA AT [phone]. SHE WAS APPRECIATIVE OF THE CALL. UNDERSTANDING OF POLICY ON UPDATES AND STATES TO THIS RN THAT SHE WILL CALL KG FOR UPDATES. ALL QUESTIONS ANSWERED FROM BOTH KG AND GUILLERMINA.
--- NOTE | 2020-03-10 16:56 | NUR ---
Note pt currently receiving TF via 60ml bolus feeds q4h with 30ml water flushes before/after each bolus. Continue to increase TF by 30ml q8h as tolerated, toward goal of 150ml bolus feeds q4h. Will continue to follow and reassess as pt needs, intake, and status change. Kerry Tao, MS RD LD [phone] cell
--- NOTE | 2020-03-10 17:29 | NUR ---
TELEPHONE ORDER TO D/C PUI ISOLATION AFTER NEGATIVE COVID SEND OFF TEST FROM DR CAPELLAN RECEIVED.
[2020-03-10 18:26] VITALS: BP 139/84
[2020-03-10] MEDS: FUROSEMIDE 40 MG/4 ML INJ (LASIX) IVP SCH (20:17)
[2020-03-10 21:14] VITALS: BP 131/75
--- NOTE | 2020-03-10 22:09 | NUR ---
CALLED WITH EVENING UPDATE.
[2020-03-11] MEDS: methylPREDNISolone 40 MG/ML (Solu-MEDROL) VIAL IV SCH ×5 (00:31→23:17)
[2020-03-11] MEDS: LACTATED RINGERS 1,000 ML IV SCH ×2 (00:49→10:16)
[2020-03-11 01:35] VITALS: BP 144/78
[2020-03-11] MEDS: RT-ALBUTEROL/IPRATROPIUM 3 ML (DUONEB) VIAL INH SCH ×6 (01:35→22:15)
[2020-03-11] MEDS: fentaNYL DRIP PRE-MIX 250 ML IV SCH ×4 (01:44→23:32)
[2020-03-11 02:07] LABS: ABG BASE EXCESS 5.9 MMOL/L (-2.5-2.5); ABG OXYGEN SATURATION 97 % (94-100); ABG PCO2 47 MMHG (35-45); ABG PH 7.43 (7.37-7.43); ABG PO2 89 MMHG (79-93); ABG TCO2 31.7 MMOL/L (21.0-31.0)
[2020-03-11 02:08] LABS: BASOPHILS % (AUTO) 0 % (0-10); EOSINOPHILS % (AUTO) 0 % (0-10); HEMATOCRIT 36 % (40-54); HEMOGLOBIN 11.6 g/dL (13.3-17.7); LYMPHOCYTES # (AUTO) 0.3 10^3/uL (1.0-4.0); LYMPHOCYTES % (AUTO) 4 % (12-44); MEAN CORPUSCULAR HEMOGLOBIN 30 pg (25-34); MEAN CORPUSCULAR HGB CONC 32 g/dL (32-36); MEAN CORPUSCULAR VOLUME 94 fL (80-99); MEAN PLATELET VOLUME 8.9 fL (9.0-12.2); MONOCYTES # (AUTO) 0.6 10^3/uL (0.0-1.0); MONOCYTES % (AUTO) 7 % (0-12); NEUTROPHILS # (AUTO) 6.7 10^3/uL (1.8-7.8); NEUTROPHILS % (AUTO) 88 % (42-75); PLATELET COUNT 202 10^3/uL (130-400); WHITE BLOOD COUNT 7.6 10^3/uL (4.3-11.0)
[2020-03-11 02:17] LABS: ALLENS TEST POSITIVE; INSPIRED O2 60; PATIENT TEMP 36.7; VENTILATOR YES
[2020-03-11 02:21] LABS: CHLORIDE 99 MMOL/L (98-107); POTASSIUM 4.8 MMOL/L (3.6-5.0); SODIUM 134 MMOL/L (135-145)
[2020-03-11 02:22] LABS: CALCIUM 7.7 MG/DL (8.5-10.1)
[2020-03-11 02:23] LABS: GLUCOSE 167 MG/DL (70-105)
[2020-03-11 02:24] LABS: CARBON DIOXIDE 27 MMOL/L (21-32)
[2020-03-11 02:27] LABS: CREATININE SERUM 1.14 MG/DL (0.60-1.30); GFR ESTIMATED > 60
[2020-03-11 02:28] LABS: BUN/CREATININE RATIO 40
[2020-03-11 02:29] LABS: MAGNESIUM 1.9 MG/DL (1.6-2.4)
--- NOTE | 2020-03-11 05:51 | Pulmonary Progress Note ---
Subjective Time Seen by a Provider: 05:46 Subjective/Events-last exam Pt is sedated on vent. Sepsis Event Evaluation Height, Weight, BMI Height: 5'8.00" Weight: 139lbs. 0.0oz. 63.371336vi; 21.1 BMI Method: Exam Exam Vital Signs Date Time Temp Pulse Resp B/P (MAP) Pulse Ox O2 Delivery O2 Flow Rate FiO2 03/11/20 05:00 98 24 166/99 (121) 96 Mechanical Ventilator 65.00 03/11/20 04:11 36.1 03/11/20 04:00 73 23 128/78 (95) 94 Mechanical Ventilator 65.00 03/11/20 03:00 81 23 128/82 (97) 94 Mechanical Ventilator 65.00 03/11/20 02:00 96 28 164/111 (128) 97 Mechanical Ventilator 65.00 03/11/20 01:35 74 24 93 60 03/11/20 01:00 75 03/11/20 01:00 75 23 136/76 (96) 93 Mechanical Ventilator 65.00 03/11/20 00:00 75 24 146/84 (104) 94 Mechanical Ventilator 65.00 03/10/20 23:47 36.6 03/10/20 23:00 73 23 139/74 (95) 94 Mechanical Ventilator 65.00 03/10/20 22:00 73 23 126/71 (89) 94 Mechanical Ventilator 65.00 03/10/20 21:14 78 24 92 60 03/10/20 21:00 70 24 131/75 (93) 93 Mechanical Ventilator 65.00 03/10/20 21:00 94 Mechanical Ventilator 60 03/10/20 20:00 75 23 146/82 (103) 93 Mechanical Ventilator 65.00 03/10/20 19:39 36.6 03/10/20 19:00 73 03/10/20 19:00 73 23 134/77 (96) 94 Mechanical Ventilator 65.00 03/10/20 18:26 70 24 93 60 03/10/20 18:15 71 24 140/84 (102) 94 Mechanical Ventilator 65.00 03/10/20 17:19 71 23 138/82 03/10/20 17:00 75 24 144/85 (104) 94 Mechanical Ventilator 65.00 03/10/20 16:13 36.2 12/21/20 16:00 71 23 138/82 (100) 94 Mechanical Ventilator 65.00 03/10/20 15:05 74 24 146/87 (106) 95 Mechanical Ventilator 65.00 03/10/20 14:33 82 149/72 03/10/20 14:32 82 149/72 03/10/20 14:08 82 24 94 60 03/10/20 14:00 72 24 135/84 (101) 94 Mechanical Ventilator 65.00 03/10/20 13:41 71 03/10/20 13:00 71 24 132/82 (99) 94 Mechanical Ventilator 65.00 03/10/20 12:00 74 24 130/82 (98) 94 Mechanical Ventilator 65.00 03/10/20 11:00 80 23 153/100 (117) 93 Mechanical Ventilator 65.00 03/10/20 10:59 36.7 03/10/20 10:07 82 24 94 60 03/10/20 10:00 82 23 149/73 (98) 94 Mechanical Ventilator 65.00 03/10/20 09:00 93 24 158/93 (114) 93 Mechanical Ventilator 65.00 03/10/20 08:19 95 Mechanical Ventilator 65 03/10/20 08:00 106 24 161/98 (119) 92 Mechanical Ventilator 65.00 03/10/20 07:30 98 24 93 65 03/10/20 07:19 36.7 03/10/20 07:00 104 03/10/20 07:00 93 23 130/57 (81) 93 Mechanical Ventilator 65.00 03/10/20 06:15 89 176/89 (118) 94 Mechanical Ventilator 60.00 03/10/20 06:12 Mechanical Ventilator 60.00 I & O 03/11/20 06:59 Intake Total 2170 ml Output Total 4550 ml Balance -2380 ml Height & Weight Height: 5'8.00" Weight: 139lbs. 0.0oz. 63.020763jc; 21.1 BMI Method: General Appearance: No Apparent Distress, WD/WN, Chronically ill, Thin Respiratory: Decreased Breath Sounds Cardiovascular: Regular Rate, Rhythm Capillary Refill: Less Than 3 Seconds Neurologic/Psychiatric: Other (sedated) Results Lab Laboratory Tests 03/10/20 02:15 03/11/20 01:38 Assessment/Plan Assessment/Plan Acute on chronic respiratory failure - vt 400, RR to 24 and PEEP to 10. -- Increase PEEP to 14 -Repeat COVID testing secondary to respiratory status -Give 40mg of Lasix BID -On propofol, Versed and fentanyl -Decrease Fentanyl by 1/2 -COVID rapid and PCR negative -MRSA swab negative -Started TF -CTA r/o PE - Neg for PE Pulmonary edema and atelectasis -Start Lasix BID 40mg -Decrease IVF to KVO Psychosis -Start PRN haldol and Ativan -Scheduled Risperadol Hypothyroid -Restart synthroid COPD with acute exacerbation -On vent -Solumedrol 40Q6 -Duoneb -On Cefepime-- D/C after today's dose. -continue Duoneb -MRSA screen negative -repeat ABG DVT/GI ppx: -on Lovenox and Protonix BARBY CAPELLAN DO Mar 11, 2020 05:51
[2020-03-11] MEDS ORDERED: FUROSEMIDE 40 MG/4 ML INJ (LASIX) IVP ONE (06:00)
[2020-03-11] MEDS: ENOXAPARIN 40 MG/0.4 ML (LOVENOX) SYR SC SCH (06:14)
[2020-03-11] MEDS: morphine INJ 4 MG/ML 1 ML (VIAL/SYRINGE) IVP PRN (06:15)
[2020-03-11] MEDS: HALOPERIDOL 5 MG/ML (HALDOL) VIAL IM PRN (06:15)
[2020-03-11] MEDS: LORazepam INJ 2 MG/ML (ATIVAN) VIAL IV PRN (06:16)
[2020-03-11] MEDS: MIDAZOLAM DRIP PRE-MIX 100 ML IV SCH (06:16)
[2020-03-11] MEDS: POTASSIUM CL 10MEQ/50ML IVPB 50 ML IV SCH (06:17)
[2020-03-11] MEDS: LEVOTHYROXINE 100 MCG (LEVOTHROID) TAB PO SCH (06:17)
[2020-03-11 06:18] VITALS: BP 146/68
[2020-03-11] MEDS: MAGNESIUM 1 GM/100 ML IVPB 100 ML IV SCH (06:18)
[2020-03-11] MEDS: KCL 20 MEQ TAB (K-DUR) PO SCH (06:18)
--- NOTE | 2020-03-11 07:19 | Diagnostic Imaging Report ---
INDICATION: Intubation. TECHNIQUE: Single view chest 6:31 AM. CORRELATION STUDY: 03/11/2020 FINDINGS: Endotracheal tube is present appearing to be advanced slightly since prior study. Tip is approximately 3 cm proximal to the eddie. Gastric tube is present pass below left hemidiaphragm. Right-sided central line tip over the SVC. Heart size and mediastinum stable. Opacities both lung bases likely combination of effusion along with atelectasis and/or infiltrate. Overall perhaps slightly improved. IMPRESSION: 1. Slight interval advancement of the endotracheal tube. Tip remains above the level the eddie. 2. Persistent combination of effusion along with atelectasis or infiltrate at both lung bases. Dictated by: Dictated on workstation # [id number]
--- NOTE | 2020-03-11 07:41 | Diagnostic Imaging Report ---
INDICATION: COPD exacerbation, mechanical ventilation. TECHNIQUE: Single view chest 2:09 AM. CORRELATION STUDY: 03/10/2020 FINDINGS: Endotracheal tube, gastric tube and right-sided central line all remain in place. Opacities of both lung bases are present. Likely combination of infiltrate along with fusion. Overall appears slightly increased. Vasculature also appears slightly more prominent. Multiple overlying monitor leads obscure detail. IMPRESSION: 1. Stable appearance about support lines and tubes. 2. Bibasilar opacities suggestive of effusions along with infiltrate. Overall appears increased from prior study. Vasculature also appears slightly more prominent. Dictated by: Dictated on workstation # [id number]
[2020-03-11] MEDS: FUROSEMIDE 40 MG/4 ML INJ (LASIX) IVP SCH ×2 (08:03→20:00)
[2020-03-11] MEDS: LACTULOSE SYRUP 10GM/15ML (ENULOSE) 30ML UDC PO SCH ×2 (08:03→20:00)
[2020-03-11] MEDS: DOCUSATE SODIUM 10 MG/ML 10 ML UDC (COLACE) PO SCH ×2 (08:03→20:00)
[2020-03-11] MEDS: amLODIPine 5 MG (NORVASC) TAB PO SCH (08:04)
[2020-03-11] MEDS: PANTOPRAZOLE 40 MG (PROTONIX) VIAL IV SCH (08:04)
[2020-03-11] MEDS: GABAPENTIN 300 MG (NEURONTIN) CAP PO SCH ×2 (08:04→20:00)
[2020-03-11] MEDS: meTOprolol TARTRATE 25 MG (LOPRESSOR) TABLET PO SCH ×2 (08:04→20:00)
[2020-03-11] MEDS: risperiDONE 1 MG (RisperDAL) TAB PO SCH ×2 (08:04→20:00)
[2020-03-11] MEDS: PROPOFOL DRIP (ICU) 100 ML IV SCH ×2 (10:17→20:05)
[2020-03-11 10:33] VITALS: BP 134/77
--- NOTE | 2020-03-11 13:19 | NUR ---
SPOKE WITH PATIENTS AND UPDATED ON PATIENT CONDITION. ALL QUESTIONS ANSWERED.
--- NOTE | 2020-03-11 14:42 | NUR ---
Note pt currently receiving TF via 90ml bolus feeds q4h with 30ml water flushes before/after each bolus. Continue to increase TF by 30ml q8h as tolerated, toward goal of 150ml bolus feeds q4h. Will continue to follow and reassess as pt needs, intake, and status change. Kerry Tao, MS RD LD [phone] cell
[2020-03-11 15:01] VITALS: BP 114/64
[2020-03-11] MEDS: inSUlin ASPART (NovoLOG) 1 UNIT/0.01 ML (CHARGE PER UNIT) SC SCH ×2 (17:55→23:17)
[2020-03-11 18:10] VITALS: BP 178/103
[2020-03-11 22:15] VITALS: BP 141/82
[2020-03-12 01:37] VITALS: BP 118/74
[2020-03-12] MEDS: RT-ALBUTEROL/IPRATROPIUM 3 ML (DUONEB) VIAL INH SCH ×6 (01:37→20:41)
[2020-03-12 02:06] LABS: ABG BASE EXCESS 9.2 MMOL/L (-2.5-2.5); ABG OXYGEN SATURATION 93 % (94-100); ABG PCO2 42 MMHG (35-45); ABG PO2 68 MMHG (79-93); ABG TCO2 34.4 MMOL/L (21.0-31.0)
[2020-03-12 02:06] LABS: BASOPHILS % (AUTO) 0 % (0-10); EOSINOPHILS % (AUTO) 0 % (0-10); HEMATOCRIT 35 % (40-54); HEMOGLOBIN 11.5 g/dL (13.3-17.7); LYMPHOCYTES # (AUTO) 0.3 10^3/uL (1.0-4.0); LYMPHOCYTES % (AUTO) 4 % (12-44); MEAN CORPUSCULAR HEMOGLOBIN 31 pg (25-34); MEAN CORPUSCULAR HGB CONC 33 g/dL (32-36); MEAN CORPUSCULAR VOLUME 93 fL (80-99); MONOCYTES # (AUTO) 0.6 10^3/uL (0.0-1.0); MONOCYTES % (AUTO) 7 % (0-12); NEUTROPHILS # (AUTO) 7.1 10^3/uL (1.8-7.8); NEUTROPHILS % (AUTO) 88 % (42-75); PLATELET COUNT 181 10^3/uL (130-400); WHITE BLOOD COUNT 8.1 10^3/uL (4.3-11.0)
[2020-03-12 02:11] LABS: ALLENS TEST POSITIVE; INSPIRED O2 60; PATIENT TEMP 36.3; VENTILATOR YES
[2020-03-12 02:18] LABS: CHLORIDE 98 MMOL/L (98-107); POTASSIUM 4.7 MMOL/L (3.6-5.0); SODIUM 138 MMOL/L (135-145)
[2020-03-12 02:19] LABS: CALCIUM 7.9 MG/DL (8.5-10.1)
[2020-03-12 02:20] LABS: GLUCOSE 201 MG/DL (70-105); TRIGLYCERIDES 311 MG/DL (<150)
[2020-03-12 02:21] LABS: CARBON DIOXIDE 29 MMOL/L (21-32)
[2020-03-12] MEDS: MIDAZOLAM DRIP PRE-MIX 100 ML IV SCH ×2 (02:21→22:16)
[2020-03-12 02:24] LABS: CREATININE SERUM 1.11 MG/DL (0.60-1.30); GFR ESTIMATED > 60; PHOSPHORUS 3.1 MG/DL (2.3-4.7)
[2020-03-12 02:25] LABS: BUN/CREATININE RATIO 44
[2020-03-12 02:26] LABS: MAGNESIUM 1.9 MG/DL (1.6-2.4)
[2020-03-12] MEDS: POTASSIUM CL 10MEQ/50ML IVPB 50 ML IV SCH (02:29)
[2020-03-12] MEDS: MAGNESIUM 1 GM/100 ML IVPB 100 ML IV SCH (02:30)
[2020-03-12] MEDS: KCL 20 MEQ TAB (K-DUR) PO SCH (02:30)
[2020-03-12 03:11] LABS: ATYPICAL LYMPHOCYTES 1 %; BLAST CELLS 1 %; LYMPHOCYTES % (MANUAL) 3 %; MONOCYTES % (MANUAL) 5 %; NEUTROPHILS % (MANUAL) 90 %; POLYCHROMASIA SLIGHT
--- NOTE | 2020-03-12 04:40 | Pulmonary Progress Note ---
Subjective Time Seen by a Provider: 04:35 Subjective/Events-last exam Pt is sedated on vent. Sepsis Event Evaluation Height, Weight, BMI Height: 5'8.00" Weight: 139lbs. 0.0oz. 63.385271sg; 21.1 BMI Method: Exam Exam Vital Signs Date Time Temp Pulse Resp B/P (MAP) Pulse Ox O2 Delivery O2 Flow Rate FiO2 03/12/20 02:21 67 24 128/76 03/12/20 01:37 63 24 92 60 03/12/20 01:00 70 03/11/20 23:10 36.6 68 24 107/70 (82) 91 Mechanical Ventilator 60.00 03/11/20 23:00 71 23 109/71 (84) 91 Mechanical Ventilator 60.00 03/11/20 22:15 80 24 93 60 03/11/20 22:00 68 23 141/82 (101) 90 Mechanical Ventilator 60.00 03/11/20 21:00 86 23 132/81 (98) 91 Mechanical Ventilator 60.00 03/11/20 20:05 80 147/82 03/11/20 20:00 91 Mechanical Ventilator 60 03/11/20 20:00 82 24 141/80 (100) 91 Mechanical Ventilator 60.00 03/11/20 19:50 36.5 82 24 144/85 (104) 91 Mechanical Ventilator 60.00 03/11/20 19:00 85 03/11/20 19:00 82 23 154/86 (108) 91 Mechanical Ventilator 60.00 03/11/20 18:52 36.8 03/11/20 18:10 87 24 90 60 03/11/20 18:00 100 23 178/103 (128) 92 60.00 03/11/20 17:00 93 23 168/104 (125) 91 60.00 03/11/20 16:00 36.6 03/11/20 16:00 73 24 121/67 (85) 89 60.00 03/11/20 15:01 75 24 90 50 03/11/20 15:00 74 21 114/64 (81) 95 60.00 03/11/20 14:00 71 31 112/63 (79) 95 60.00 03/11/20 13:00 77 19 110/64 (79) 90 60.00 03/11/20 13:00 88 60.00 03/11/20 13:00 75 03/11/20 12:40 36.1 03/11/20 12:00 80 23 135/76 (95) 89 Mechanical Ventilator 55.00 03/11/20 11:00 80 24 133/77 (95) 90 Mechanical Ventilator 55.00 03/11/20 10:33 78 24 90 50 03/11/20 10:17 79 130/78 03/11/20 10:00 79 24 129/76 (93) 90 Mechanical Ventilator 55.00 03/11/20 09:00 87 23 158/92 (114) 90 Mechanical Ventilator 55.00 03/11/20 08:20 55.00 03/11/20 08:00 106 24 171/89 (116) 92 Mechanical Ventilator 65.00 03/11/20 08:00 90 Mechanical Ventilator 55 03/11/20 07:55 36.4 03/11/20 07:00 91 03/11/20 07:00 85 23 119/70 (86) 92 Mechanical Ventilator 65.00 03/11/20 06:18 99 24 93 50 03/11/20 06:16 98 03/11/20 06:00 78 23 133/85 (101) 95 Mechanical Ventilator 65.00 03/11/20 05:00 98 24 166/99 (121) 96 Mechanical Ventilator 65.00 I & O 03/12/20 07:00 Intake Total 2850 ml Output Total 4850 ml Balance -2000 ml Height & Weight Height: 5'8.00" Weight: 139lbs. 0.0oz. 63.978935as; 21.1 BMI Method: General Appearance: No Apparent Distress, WD/WN, Chronically ill, Thin Respiratory: Decreased Breath Sounds Cardiovascular: Regular Rate, Rhythm Capillary Refill: Less Than 3 Seconds Neurologic/Psychiatric: Other (sedated) Results Lab Laboratory Tests 03/11/20 01:38 03/12/20 01:50 Assessment/Plan Assessment/Plan Acute on chronic respiratory failure - vt 400, RR to 24 and PEEP to 10. --PEEP to 14 -Repeat COVID testing secondary to respiratory status -Give 40mg of Lasix BID -On propofol 20, Versed 5 and fentanyl 225 -COVID rapid and PCR negative -MRSA swab negative -Started TF -CTA r/o PE - Neg for PE Pulmonary edema and atelectasis -Start Lasix BID 40mg -Decrease IVF to KVO -Check Echo Psychosis -Start PRN haldol and Ativan -Scheduled Risperadol Hypothyroid -Restart synthroid COPD with acute exacerbation -On vent -Solumedrol 40Q6 -Duoneb -s/p Cefepime-- -continue Duoneb -MRSA screen negative -repeat ABG DVT/GI ppx: -on Lovenox and Protonix BARBY CAPELLAN DO Mar 12, 2020 04:40
[2020-03-12] MEDS: fentaNYL DRIP PRE-MIX 250 ML IV SCH ×4 (05:37→21:42)
[2020-03-12] MEDS: PROPOFOL DRIP (ICU) 100 ML IV SCH ×2 (05:58→16:36)
[2020-03-12] MEDS: LEVOTHYROXINE 100 MCG (LEVOTHROID) TAB PO SCH (06:02)
[2020-03-12] MEDS: methylPREDNISolone 40 MG/ML (Solu-MEDROL) VIAL IV SCH ×4 (06:02→23:48)
[2020-03-12] MEDS: ENOXAPARIN 40 MG/0.4 ML (LOVENOX) SYR SC SCH (06:02)
[2020-03-12] MEDS: inSUlin ASPART (NovoLOG) 1 UNIT/0.01 ML (CHARGE PER UNIT) SC SCH ×4 (06:04→23:48)
[2020-03-12 07:11] VITALS: BP 122/72
--- NOTE | 2020-03-12 08:37 | Diagnostic Imaging Report ---
INDICATION: On ventilator support. Time of exam: 3:39 AM Correlation is made with prior chest from one day earlier. ET tube has tip in good position above the eddie. NG tube passes below the diaphragm. Right upper extremity PICC line has tip overlying the SVC. Bibasilar infiltrates and probable effusions persist. Mid and upper lung kendall are clear. There is no pneumothorax. IMPRESSION: Stable appearance of the chest when compared with the examination one day earlier. Dictated by: Dictated on workstation # [id number]
[2020-03-12] MEDS: LACTULOSE SYRUP 10GM/15ML (ENULOSE) 30ML UDC PO SCH ×2 (08:54→20:16)
[2020-03-12] MEDS: DOCUSATE SODIUM 10 MG/ML 10 ML UDC (COLACE) PO SCH ×2 (08:54→20:16)
[2020-03-12] MEDS: GABAPENTIN 300 MG (NEURONTIN) CAP PO SCH ×2 (08:57→20:16)
[2020-03-12] MEDS: risperiDONE 1 MG (RisperDAL) TAB PO SCH ×2 (08:59→20:16)
[2020-03-12] MEDS: meTOprolol TARTRATE 25 MG (LOPRESSOR) TABLET PO SCH ×2 (08:59→20:16)
[2020-03-12] MEDS: PANTOPRAZOLE 40 MG (PROTONIX) VIAL IV SCH (08:59)
[2020-03-12] MEDS: FUROSEMIDE 40 MG/4 ML INJ (LASIX) IVP SCH (08:59)
[2020-03-12] MEDS: amLODIPine 5 MG (NORVASC) TAB PO SCH (08:59)
[2020-03-12 10:55] VITALS: BP 99/68
[2020-03-12 13:32] VITALS: BP 113/73
[2020-03-12 17:58] VITALS: BP 118/74
[2020-03-12] MEDS: LACTATED RINGERS 1,000 ML IV SCH (19:33)
[2020-03-12 20:41] VITALS: BP 140/87
[2020-03-12] MEDS: LORazepam INJ 2 MG/ML (ATIVAN) VIAL IV PRN (23:50)
[2020-03-13] MEDS: fentaNYL DRIP PRE-MIX 250 ML IV SCH ×5 (03:09→23:32)
[2020-03-13] MEDS: PROPOFOL DRIP (ICU) 100 ML IV SCH ×3 (03:21→22:33)
[2020-03-13 03:41] LABS: ABG BASE EXCESS 8.8 MMOL/L (-2.5-2.5); ABG OXYGEN SATURATION 98 % (94-100); ABG PCO2 48 MMHG (35-45); ABG PH 7.45 (7.37-7.43); ABG PO2 117 MMHG (79-93); ABG TCO2 34.6 MMOL/L (21.0-31.0); BASOPHILS % (AUTO) 0 % (0-10); EOSINOPHILS % (AUTO) 0 % (0-10); HEMATOCRIT 37 % (40-54); HEMOGLOBIN 11.9 g/dL (13.3-17.7); LYMPHOCYTES # (AUTO) 0.3 10^3/uL (1.0-4.0); LYMPHOCYTES % (AUTO) 3 % (12-44); MEAN CORPUSCULAR HEMOGLOBIN 30 pg (25-34); MEAN CORPUSCULAR HGB CONC 32 g/dL (32-36); MEAN CORPUSCULAR VOLUME 93 fL (80-99); MEAN PLATELET VOLUME 8.9 fL (9.0-12.2); MONOCYTES # (AUTO) 0.7 10^3/uL (0.0-1.0); MONOCYTES % (AUTO) 7 % (0-12); NEUTROPHILS # (AUTO) 8.5 10^3/uL (1.8-7.8); NEUTROPHILS % (AUTO) 88 % (42-75); PLATELET COUNT 178 10^3/uL (130-400); WHITE BLOOD COUNT 9.6 10^3/uL (4.3-11.0)
[2020-03-13 03:46] LABS: ALLENS TEST POSITIVE; INSPIRED O2 60%; PATIENT TEMP 36.9; VENTILATOR YES
[2020-03-13 03:51] LABS: CHLORIDE 97 MMOL/L (98-107); POTASSIUM 4.7 MMOL/L (3.6-5.0); SODIUM 137 MMOL/L (135-145)
[2020-03-13 03:52] LABS: CALCIUM 7.9 MG/DL (8.5-10.1); GLUCOSE 226 MG/DL (70-105)
[2020-03-13 03:54] LABS: CARBON DIOXIDE 29 MMOL/L (21-32)
[2020-03-13 03:56] LABS: CREATININE SERUM 1.09 MG/DL (0.60-1.30); GFR ESTIMATED > 60; PHOSPHORUS 3.1 MG/DL (2.3-4.7)
[2020-03-13 03:57] LABS: BUN/CREATININE RATIO 42
[2020-03-13 03:59] LABS: MAGNESIUM 2.1 MG/DL (1.6-2.4)
[2020-03-13] MEDS: MAGNESIUM 1 GM/100 ML IVPB 100 ML IV SCH (04:01)
[2020-03-13] MEDS: POTASSIUM CL 10MEQ/50ML IVPB 50 ML IV SCH (04:01)
[2020-03-13] MEDS: KCL 20 MEQ TAB (K-DUR) PO SCH (04:01)
[2020-03-13] MEDS: methylPREDNISolone 40 MG/ML (Solu-MEDROL) VIAL IV SCH ×4 (05:39→23:44)
[2020-03-13] MEDS: inSUlin ASPART (NovoLOG) 1 UNIT/0.01 ML (CHARGE PER UNIT) SC SCH ×4 (05:39→23:44)
[2020-03-13] MEDS: LEVOTHYROXINE 100 MCG (LEVOTHROID) TAB PO SCH (05:39)
[2020-03-13] MEDS: ENOXAPARIN 40 MG/0.4 ML (LOVENOX) SYR SC SCH (06:18)
[2020-03-13 06:38] VITALS: BP 116/70
[2020-03-13] MEDS: RT-ALBUTEROL/IPRATROPIUM 3 ML (DUONEB) VIAL INH SCH ×5 (06:38→20:49)
--- NOTE | 2020-03-13 07:13 | Progress Note - Hospitalist ---
Subjective HPI/CC On Admission Date Seen by Provider: Mar 13, 2020 Time Seen by Provider: 11:00 CC: VDRF HPI: This is a 54yoWM clinic patient of Dr Bar who I transferred over from [facility] [place] due to VDRF in severe COPD patient who is still actively smoking. DNR rescinded yesterday and worsened respiratory status after COVID negative results. PNA treated along with AECOPD with steroids and biPAP did not improve status so he w as electively intubated and transferred. Subjective/Events-last exam No major issues per RN PEEP 14 Diff to wean ECHO performed End stage COPD noted 4L/min O2 at home Objective Exam Vital Signs Vital Signs Date Time Temp Pulse Resp B/P (MAP) Pulse Ox O2 Delivery O2 Flow Rate FiO2 03/14/20 18:00 78 17 163/85 (111) 92 Mechanical Ventilator 45.00 03/14/20 14:35 45 03/14/20 13:00 36.8 Capillary Refill : Less Than 3 Seconds General Appearance: No Apparent Distress, WD/WN, Chronically ill Respiratory: Decreased Breath Sounds Cardiovascular: Regular Rate, Rhythm Results/Procedures Lab Laboratory Tests 03/14/20 02:30 Patient resulted labs reviewed. Assessment/Plan Assessment and Plan Assess & Plan/Chief Complaint Assessment: VDRF AECOPD Severe COPD Current smoker Anxiety HLP HTN Plan: Vent management Appreciate Dr Padron 03/07/20: Vent COPD is severe 03/13/20: Difficulty with wean due to end stage COPD PEEP 14 Diagnosis/Problems Diagnosis/Problems (1) Respiratory failure Clinical Quality Measures DVT/VTE Risk/Contraindication: Risk Factor Score Per Nursin RFS Level Per Nursing on Admit: 4+=Very High SHELLEY KRAMER DO Mar 13, 2020 07:13
--- NOTE | 2020-03-13 07:48 | Diagnostic Imaging Report ---
INDICATION: Shortness of breath Portable chest 1:33 AM There is ET tube projects over the trachea. NG tube enters the stomach. Right upper extremity PICC line tip projects over the SVC. There are bilateral pleural effusions with some basilar atelectasis. IMPRESSION: Basilar atelectasis and effusions unchanged from the previous day. Dictated by: Dictated on workstation # [id number]
[2020-03-13] MEDS: amLODIPine 5 MG (NORVASC) TAB PO SCH (08:00)
[2020-03-13] MEDS: DOCUSATE SODIUM 10 MG/ML 10 ML UDC (COLACE) PO SCH ×2 (08:00→20:45)
[2020-03-13] MEDS: PANTOPRAZOLE 40 MG (PROTONIX) VIAL IV SCH (08:00)
[2020-03-13] MEDS: FUROSEMIDE 40 MG/4 ML INJ (LASIX) IVP SCH (08:00)
--- NOTE | 2020-03-13 08:00 | NUR ---
THIS RN WASTED 5 ML OF FENTANYL WITH ISSAC RN.
[2020-03-13] MEDS: GABAPENTIN 300 MG (NEURONTIN) CAP PO SCH ×2 (08:01→20:45)
[2020-03-13] MEDS: LACTULOSE SYRUP 10GM/15ML (ENULOSE) 30ML UDC PO SCH ×2 (08:01→20:45)
[2020-03-13] MEDS: meTOprolol TARTRATE 25 MG (LOPRESSOR) TABLET PO SCH ×2 (08:01→20:45)
[2020-03-13] MEDS: risperiDONE 1 MG (RisperDAL) TAB PO SCH ×2 (08:01→20:45)
[2020-03-13 11:19] VITALS: BP 133/80
[2020-03-13 15:15] VITALS: BP 166/103
[2020-03-13] MEDS: MIDAZOLAM DRIP PRE-MIX 100 ML IV SCH (15:42)
--- NOTE | 2020-03-13 16:00 | NUR ---
THIS RN WASTED 8 ML OF VERSED WITH JARED MEJIA.
[2020-03-13 17:51] VITALS: BP 119/73
[2020-03-13 20:49] VITALS: BP 126/76
[2020-03-13] MEDS: LORazepam INJ 2 MG/ML (ATIVAN) VIAL IV PRN (22:35)
[2020-03-14] MEDS: LACTATED RINGERS 1,000 ML IV SCH ×2 (00:59→05:33)
[2020-03-14 01:00] VITALS: BP 120/73
[2020-03-14] MEDS: RT-ALBUTEROL/IPRATROPIUM 3 ML (DUONEB) VIAL INH SCH ×5 (01:00→21:51)
[2020-03-14 02:42] LABS: ABG BASE EXCESS 9.1 MMOL/L (-2.5-2.5); ABG OXYGEN SATURATION 97 % (94-100); ABG PCO2 49 MMHG (35-45); ABG PH 7.45 (7.37-7.43); ABG PO2 88 MMHG (79-93); ABG TCO2 34.9 MMOL/L (21.0-31.0)
[2020-03-14 02:43] LABS: BASOPHILS % (AUTO) 0 % (0-10); EOSINOPHILS % (AUTO) 0 % (0-10); HEMATOCRIT 34 % (40-54); HEMOGLOBIN 10.8 g/dL (13.3-17.7); LYMPHOCYTES # (AUTO) 0.3 10^3/uL (1.0-4.0); LYMPHOCYTES % (AUTO) 2 % (12-44); MEAN CORPUSCULAR HEMOGLOBIN 30 pg (25-34); MEAN CORPUSCULAR HGB CONC 32 g/dL (32-36); MEAN CORPUSCULAR VOLUME 95 fL (80-99); MEAN PLATELET VOLUME 9.1 fL (9.0-12.2); MONOCYTES # (AUTO) 0.8 10^3/uL (0.0-1.0); MONOCYTES % (AUTO) 7 % (0-12); NEUTROPHILS # (AUTO) 10.2 10^3/uL (1.8-7.8); NEUTROPHILS % (AUTO) 90 % (42-75); PLATELET COUNT 177 10^3/uL (130-400); WHITE BLOOD COUNT 11.4 10^3/uL (4.3-11.0)
[2020-03-14 02:45] LABS: ALLENS TEST YES-POS; INSPIRED O2 45%; PATIENT TEMP 37.3; VENTILATOR YES
[2020-03-14 02:55] LABS: CHLORIDE 98 MMOL/L (98-107); POTASSIUM 4.7 MMOL/L (3.6-5.0); SODIUM 137 MMOL/L (135-145)
[2020-03-14 02:56] LABS: CALCIUM 7.8 MG/DL (8.5-10.1)
[2020-03-14 02:57] LABS: GLUCOSE 181 MG/DL (70-105); TRIGLYCERIDES 225 MG/DL (<150)
[2020-03-14 02:58] LABS: CARBON DIOXIDE 29 MMOL/L (21-32)
[2020-03-14 03:00] LABS: GFR ESTIMATED > 60; PHOSPHORUS 3.4 MG/DL (2.3-4.7)
[2020-03-14 03:02] LABS: BUN/CREATININE RATIO 43
[2020-03-14] MEDS: POTASSIUM CL 10MEQ/50ML IVPB 50 ML IV SCH (03:05)
[2020-03-14] MEDS: MAGNESIUM 1 GM/100 ML IVPB 100 ML IV SCH (03:05)
[2020-03-14] MEDS: KCL 20 MEQ TAB (K-DUR) PO SCH (03:06)
[2020-03-14] MEDS: fentaNYL DRIP PRE-MIX 250 ML IV SCH ×5 (04:29→22:46)
[2020-03-14] MEDS: MIDAZOLAM DRIP PRE-MIX 100 ML IV SCH ×2 (05:33→20:09)
[2020-03-14] MEDS: inSUlin ASPART (NovoLOG) 1 UNIT/0.01 ML (CHARGE PER UNIT) SC SCH ×3 (06:23→17:56)
[2020-03-14] MEDS: LEVOTHYROXINE 100 MCG (LEVOTHROID) TAB PO SCH (06:23)
[2020-03-14] MEDS: methylPREDNISolone 40 MG/ML (Solu-MEDROL) VIAL IV SCH ×3 (06:23→17:56)
[2020-03-14] MEDS: ENOXAPARIN 40 MG/0.4 ML (LOVENOX) SYR SC SCH (06:23)
[2020-03-14] MEDS: PROPOFOL DRIP (ICU) 100 ML IV SCH (06:41)
[2020-03-14 07:59] VITALS: BP 166/91
[2020-03-14] MEDS: FUROSEMIDE 40 MG/4 ML INJ (LASIX) IVP SCH (08:08)
[2020-03-14] MEDS: LACTULOSE SYRUP 10GM/15ML (ENULOSE) 30ML UDC PO SCH ×2 (08:08→20:08)
[2020-03-14] MEDS: PANTOPRAZOLE 40 MG (PROTONIX) VIAL IV SCH (08:08)
[2020-03-14] MEDS: DOCUSATE SODIUM 10 MG/ML 10 ML UDC (COLACE) PO SCH ×2 (08:08→20:08)
[2020-03-14] MEDS: GABAPENTIN 300 MG (NEURONTIN) CAP PO SCH ×2 (08:09→20:08)
[2020-03-14] MEDS: risperiDONE 1 MG (RisperDAL) TAB PO SCH ×2 (08:09→20:08)
[2020-03-14] MEDS: meTOprolol TARTRATE 25 MG (LOPRESSOR) TABLET PO SCH ×2 (08:09→20:08)
[2020-03-14] MEDS: amLODIPine 5 MG (NORVASC) TAB PO SCH (08:09)
--- NOTE | 2020-03-14 09:13 | Diagnostic Imaging Report ---
INDICATION: Dyspnea EXAMINATION: Chest 03/14/2020 COMPARISON: 03/13/2020 FINDINGS: The heart is stable. Pulmonary vasculature appears unchanged. Bibasilar atelectasis versus mild infiltrates noted. There is a small left effusion. There is no pneumothorax. Right PICC line tip stable as is the ET tube. There is a feeding tube coursing beneath the diaphragm. IMPRESSION: 1. Slight pulmonary vascular congestion with bibasilar infiltrate and small left effusion. Dictated by: Dictated on workstation # [id number]
[2020-03-14 10:47] VITALS: BP 136/76
--- NOTE | 2020-03-14 11:42 | Progress Note - Hospitalist ---
Subjective HPI/CC On Admission Date Seen by Provider: Mar 14, 2020 Time Seen by Provider: 10:00 CC: VDRF HPI: This is a 54yoWM clinic patient of Dr Bar who [place] [facility] [place]F in severe COPD patient who is still actively smoking. DNR rescinded yesterday and worsened respiratory status after COVID negative results. PNA treated along with AECOPD with steroids and biPAP did not improve status so he w as electively intubated and transferred. Subjective/Events-last exam PEEP 10 and FiO2 at 45% May be a wean candidate End stage COPD could keep him un-weanable Tachy and Increase BP when he is repositioned Objective Exam Vital Signs Vital Signs Date Time Temp Pulse Resp B/P (MAP) Pulse Ox O2 Delivery O2 Flow Rate FiO2 03/15/20 06:44 72 03/15/20 06:12 Mechanical Ventilator 50.00 03/15/20 06:00 17 166/93 (117) 96 03/15/20 02:13 36.4 03/14/20 21:51 45 Capillary Refill : Less Than 3 Seconds General Appearance: No Apparent Distress, Chronically ill Respiratory: No Accessory Muscle Use, No Respiratory Distress, Decreased Breath Sounds Cardiovascular: Regular Rate, Rhythm Results/Procedures Lab Laboratory Tests 03/15/20 02:45 Patient resulted labs reviewed. Assessment/Plan Assessment and Plan Assess & Plan/Chief Complaint Assessment: VDRF AECOPD Severe COPD Current smoker Anxiety HLP HTN Plan: Vent management Appreciate Dr Padron 03/07/20: Vent COPD is severe 03/13/20: Difficulty with wean due to end stage COPD PEEP 14 03/14/20: Wean? End stage COPD Diagnosis/Problems Diagnosis/Problems (1) Respiratory failure Clinical Quality Measures DVT/VTE Risk/Contraindication: Risk Factor Score Per Nursin RFS Level Per Nursing on Admit: 4+=Very High SHELLEY KRAMER DO Mar 14, 2020 11:42
[2020-03-14] MEDS: DexMEDEtomidine PRE MIX 100 ML IV SCH ×3 (13:20→21:43)
[2020-03-14 14:35] VITALS: BP 169/85
[2020-03-14] MEDS: hydrALAZINE (APESOLINE) 20 MG/ML VIAL IV PRN (20:10)
--- NOTE | 2020-03-14 21:25 | Diagnostic Imaging Report ---
EXAMINATION: Chest 1 view. HISTORY: Tube placement. COMPARISON: 03/14/2020. FINDINGS: Endotracheal tube tip terminates 6 cm above the eddie. Gastric tube tip terminates below the field of view. Right upper extremity peripherally inserted central venous catheter tip terminates in the superior vena cava. There is left base atelectasis, unchanged. No pleural effusion or pneumothorax. Heart size is normal. IMPRESSION: Left base atelectasis, unchanged. Dictated by: Dictated on workstation # [id number]
--- NOTE | 2020-03-14 21:27 | NUR ---
[address] STORM NOTIFIED OF ETT PLACEMENT 19 @ GUMS AND ABSENCE OF BREATH SOUNDS RIGHT LOBES THROUGHOUT. NEW ORDER FOR CXR WAS RECEIVED AT THIS TIME. [address] STORM NOTIFIED OF COMPLETION OF CXR BY THIS RN [address] STORM REQUESTING XRAY TO BE READ BY RADIOLOGIST.
--- NOTE | 2020-03-14 21:35 | NUR ---
THIS RN NOTIFIED DR STORM OF ETT PLACEMENT 6CM ABOVE [place] PER XRAY REPORT. NEW ORDER RECEIVED TO ADVANCE ETT 2 CM AND OBTAIN CXR FOLLOWING. THIS RN VERBALIZED UNDERSTANDING AND NOTIFIED RT.
[2020-03-14 21:51] VITALS: BP 169/85
--- NOTE | 2020-03-14 23:03 | NUR ---
DR STORM NOTIFIED OF CXR REPORT. ETT 5 CM ABOVE [place]. THIS RN DESCRIBED PT RESPIRATORY EFFORT AT THIS TIME. ENCOURAGED TO INCREASE SEDATION. THIS RN VERBALIZED UNDERSTANDING.
[2020-03-15] MEDS: methylPREDNISolone 40 MG/ML (Solu-MEDROL) VIAL IV SCH ×4 (00:18→17:54)
[2020-03-15] MEDS: inSUlin ASPART (NovoLOG) 1 UNIT/0.01 ML (CHARGE PER UNIT) SC SCH ×4 (00:18→17:54)
[2020-03-15] MEDS: LORazepam INJ 2 MG/ML (ATIVAN) VIAL IV PRN (00:18)
[2020-03-15] MEDS: DexMEDEtomidine PRE MIX 100 ML IV SCH ×8 (00:23→21:44)
[2020-03-15] MEDS: hydrALAZINE (APESOLINE) 20 MG/ML VIAL IV PRN (02:05)
[2020-03-15] MEDS: fentaNYL DRIP PRE-MIX 250 ML IV SCH ×5 (02:54→20:05)
[2020-03-15 03:09] LABS: BASOPHILS % (AUTO) 0 % (0-10); EOSINOPHILS % (AUTO) 0 % (0-10); HEMATOCRIT 36 % (40-54); LYMPHOCYTES # (AUTO) 0.2 10^3/uL (1.0-4.0); LYMPHOCYTES % (AUTO) 2 % (12-44); MEAN CORPUSCULAR HEMOGLOBIN 31 pg (25-34); MEAN CORPUSCULAR HGB CONC 33 g/dL (32-36); MEAN CORPUSCULAR VOLUME 93 fL (80-99); MEAN PLATELET VOLUME 9.1 fL (9.0-12.2); MONOCYTES # (AUTO) 0.8 10^3/uL (0.0-1.0); MONOCYTES % (AUTO) 5 % (0-12); NEUTROPHILS # (AUTO) 13.6 10^3/uL (1.8-7.8); NEUTROPHILS % (AUTO) 92 % (42-75); PLATELET COUNT 162 10^3/uL (130-400); WHITE BLOOD COUNT 14.8 10^3/uL (4.3-11.0)
[2020-03-15 03:10] LABS: ABG BASE EXCESS 7.8 MMOL/L (-2.5-2.5); ABG OXYGEN SATURATION 89 % (94-100); ABG PCO2 46 MMHG (35-45); ABG PH 7.45 (7.37-7.43); ABG PO2 59 MMHG (79-93); ABG TCO2 33.6 MMOL/L (21.0-31.0)
[2020-03-15 03:11] LABS: ALLENS TEST YES-POS; INSPIRED O2 50%; PATIENT TEMP 36.4; VENTILATOR YES
[2020-03-15 03:20] LABS: CHLORIDE 99 MMOL/L (98-107); POTASSIUM 4.4 MMOL/L (3.6-5.0); SODIUM 136 MMOL/L (135-145)
[2020-03-15 03:21] LABS: CALCIUM 7.6 MG/DL (8.5-10.1)
[2020-03-15 03:22] LABS: GLUCOSE 187 MG/DL (70-105)
[2020-03-15 03:24] LABS: CARBON DIOXIDE 28 MMOL/L (21-32)
[2020-03-15 03:26] LABS: CREATININE SERUM 0.86 MG/DL (0.60-1.30); GFR ESTIMATED > 60; PHOSPHORUS 2.9 MG/DL (2.3-4.7)
[2020-03-15 03:27] LABS: BUN/CREATININE RATIO 44
[2020-03-15 03:28] LABS: MAGNESIUM 1.9 MG/DL (1.6-2.4)
[2020-03-15] MEDS: POTASSIUM CL 10MEQ/50ML IVPB 50 ML IV SCH (05:49)
[2020-03-15] MEDS: MAGNESIUM 1 GM/100 ML IVPB 100 ML IV SCH (05:50)
[2020-03-15] MEDS: KCL 20 MEQ TAB (K-DUR) PO SCH (05:50)
[2020-03-15] MEDS: MIDAZOLAM DRIP PRE-MIX 100 ML IV SCH ×2 (06:01→16:13)
[2020-03-15] MEDS: ENOXAPARIN 40 MG/0.4 ML (LOVENOX) SYR SC SCH (06:03)
[2020-03-15] MEDS: LEVOTHYROXINE 100 MCG (LEVOTHROID) TAB PO SCH (06:03)
[2020-03-15] MEDS: RT-ALBUTEROL/IPRATROPIUM 3 ML (DUONEB) VIAL INH SCH ×6 (07:06→22:09)
[2020-03-15 07:09] VITALS: BP 149/82
--- NOTE | 2020-03-15 07:26 | Progress Note - Hospitalist ---
Subjective HPI/CC On Admission Date Seen by Provider: Mar 15, 2020 Time Seen by Provider: 11:30 CC: VDRF HPI: This is a 54yoWM clinic patient of Dr Bar who I transferred over from [facility] [place] due to VDRF in severe COPD patient who is still actively smoking. DNR rescinded yesterday and worsened respiratory status after COVID negative results. PNA treated along with AECOPD with steroids and biPAP did not improve status so he w as electively intubated and transferred. Subjective/Events-last exam End stage COPD Wean may not be possible PEEP 5 FiO2 35% Objective Exam Vital Signs Vital Signs Date Time Temp Pulse Resp B/P (MAP) Pulse Ox O2 Delivery O2 Flow Rate FiO2 03/15/20 18:53 35.6 81 18 167/104 96 Mechanical Ventilator 03/15/20 18:00 45.00 03/15/20 14:58 40 Capillary Refill : Less Than 3 Seconds General Appearance: No Apparent Distress, WD/WN, Chronically ill Respiratory: Lungs Clear Cardiovascular: Regular Rate, Rhythm Results/Procedures Lab Laboratory Tests 03/15/20 02:45 Patient resulted labs reviewed. Assessment/Plan Assessment and Plan Assess & Plan/Chief Complaint Assessment: VDRF AECOPD Severe COPD Current smoker Anxiety HLP HTN Plan: Vent management Appreciate Dr Padron 03/07/20: Vent COPD is severe 03/13/20: Difficulty with wean due to end stage COPD PEEP 14 03/14/20: Wean? End stage COPD 03/15/20: End stage COPD Diagnosis/Problems Diagnosis/Problems (1) Respiratory failure Clinical Quality Measures DVT/VTE Risk/Contraindication: Risk Factor Score Per Nursin RFS Level Per Nursing on Admit: 4+=Very High SHELLEY KRAMER DO Mar 15, 2020 07:26
--- NOTE | 2020-03-15 07:36 | Diagnostic Imaging Report ---
EXAM: CHEST 1 VIEW, AP/PA ONLY INDICATION: Tube placement. COMPARISON: Chest radiograph 03/14/2020 at 9:07 PM. FINDINGS: ETT tip just below the level of the clavicles. NG tube tip and side-port in the stomach. Normal heart size. Mild atelectasis in the left lower lobe. Small left pleural effusion. No pneumothorax. No acute osseous findings. Right PICC tip mid SVC. IMPRESSION: 1. Support lines in the expected positions. 2. Atelectasis in the left lung base and increasing small left pleural effusion. Dictated by: Dictated on workstation # [id number]
[2020-03-15] MEDS: LACTULOSE SYRUP 10GM/15ML (ENULOSE) 30ML UDC PO SCH ×2 (09:10→20:05)
[2020-03-15] MEDS: amLODIPine 5 MG (NORVASC) TAB PO SCH (09:10)
[2020-03-15] MEDS: meTOprolol TARTRATE 25 MG (LOPRESSOR) TABLET PO SCH ×2 (09:10→20:06)
[2020-03-15] MEDS: DOCUSATE SODIUM 10 MG/ML 10 ML UDC (COLACE) PO SCH ×2 (09:10→20:05)
[2020-03-15] MEDS: GABAPENTIN 300 MG (NEURONTIN) CAP PO SCH ×2 (09:10→20:06)
[2020-03-15] MEDS: FUROSEMIDE 40 MG/4 ML INJ (LASIX) IVP SCH (09:11)
[2020-03-15] MEDS: PANTOPRAZOLE 40 MG (PROTONIX) VIAL IV SCH (09:11)
[2020-03-15] MEDS: risperiDONE 1 MG (RisperDAL) TAB PO SCH ×2 (09:14→20:06)
[2020-03-15 10:19] VITALS: BP 119/68
--- NOTE | 2020-03-15 11:02 | NUR ---
SPOKE WITH PATIENTS AND UPDATED ON PATIENT CONDITION. ANSWERED ALL QUESTIONS VOICED.
[2020-03-15] MEDS: PROPOFOL DRIP (ICU) 100 ML IV SCH (13:17)
[2020-03-15] MEDS: LACTATED RINGERS 1,000 ML IV SCH (13:40)
[2020-03-15 14:58] VITALS: BP 149/86
--- NOTE | 2020-03-15 19:54 | NUR ---
UPDATE PROVIDED TO ELEANOR () BY PHONE AT THIS TIME. QUESTIONS ANSWERED AND WAS APPRECIATIVE FOR THE INFORMATION.
[2020-03-16] MEDS: fentaNYL DRIP PRE-MIX 250 ML IV SCH ×7 (00:08→23:33)
[2020-03-16] MEDS: DexMEDEtomidine PRE MIX 100 ML IV SCH ×8 (00:44→23:34)
[2020-03-16] MEDS: inSUlin ASPART (NovoLOG) 1 UNIT/0.01 ML (CHARGE PER UNIT) SC SCH ×5 (00:47→23:52)
[2020-03-16] MEDS: methylPREDNISolone 40 MG/ML (Solu-MEDROL) VIAL IV SCH ×5 (00:47→23:34)
[2020-03-16] MEDS: MIDAZOLAM DRIP PRE-MIX 100 ML IV SCH ×3 (01:53→20:36)
[2020-03-16 02:18] LABS: BASOPHILS % (AUTO) 0 % (0-10); EOSINOPHILS % (AUTO) 0 % (0-10); HEMATOCRIT 35 % (40-54); HEMOGLOBIN 11.5 g/dL (13.3-17.7); LYMPHOCYTES # (AUTO) 0.2 10^3/uL (1.0-4.0); LYMPHOCYTES % (AUTO) 2 % (12-44); MEAN CORPUSCULAR HEMOGLOBIN 31 pg (25-34); MEAN CORPUSCULAR HGB CONC 33 g/dL (32-36); MEAN CORPUSCULAR VOLUME 93 fL (80-99); MEAN PLATELET VOLUME 8.9 fL (9.0-12.2); MONOCYTES # (AUTO) 0.5 10^3/uL (0.0-1.0); MONOCYTES % (AUTO) 4 % (0-12); NEUTROPHILS % (AUTO) 93 % (42-75); PLATELET COUNT 133 10^3/uL (130-400); WHITE BLOOD COUNT 11.9 10^3/uL (4.3-11.0)
[2020-03-16 02:23] LABS: ABG BASE EXCESS 2.7 MMOL/L (-2.5-2.5); ABG OXYGEN SATURATION 82 % (94-100); ABG PCO2 43 MMHG (35-45); ABG PH 7.41 (7.37-7.43); ABG PO2 50 MMHG (79-93); ABG TCO2 28.5 MMOL/L (21.0-31.0)
[2020-03-16 02:29] LABS: ALLENS TEST YES-POS; INSPIRED O2 45%; PATIENT TEMP 36.2; VENTILATOR YES
[2020-03-16] MEDS: RT-ALBUTEROL/IPRATROPIUM 3 ML (DUONEB) VIAL INH SCH ×6 (02:32→23:57)
[2020-03-16 02:33] VITALS: BP 163/99
[2020-03-16 02:44] LABS: CHLORIDE 104 MMOL/L (98-107); SODIUM 136 MMOL/L (135-145)
[2020-03-16 02:45] LABS: CALCIUM 6.6 MG/DL (8.5-10.1)
[2020-03-16 02:46] LABS: GLUCOSE 211 MG/DL (70-105); TRIGLYCERIDES 195 MG/DL (<150)
[2020-03-16 02:47] LABS: CARBON DIOXIDE 23 MMOL/L (21-32)
[2020-03-16 02:49] LABS: CREATININE SERUM 0.69 MG/DL (0.60-1.30); GFR ESTIMATED > 60; PHOSPHORUS 3.3 MG/DL (2.3-4.7)
[2020-03-16 02:50] LABS: BUN/CREATININE RATIO 49
[2020-03-16 02:52] LABS: MAGNESIUM 1.7 MG/DL (1.6-2.4)
[2020-03-16] MEDS: POTASSIUM CL 10MEQ/50ML IVPB 50 ML IV SCH (03:29)
[2020-03-16] MEDS: KCL 20 MEQ TAB (K-DUR) PO SCH (03:30)
[2020-03-16] MEDS: MAGNESIUM 1 GM/100 ML IVPB 100 ML IV SCH ×3 (05:30→05:32)
[2020-03-16] MEDS: LEVOTHYROXINE 100 MCG (LEVOTHROID) TAB PO SCH (05:31)
[2020-03-16] MEDS: ENOXAPARIN 40 MG/0.4 ML (LOVENOX) SYR SC SCH (05:31)
--- NOTE | 2020-03-16 06:38 | Progress Note - Hospitalist ---
Subjective HPI/CC On Admission Date Seen by Provider: Mar 16, 2020 Time Seen by Provider: 12:00 CC: VDRF HPI: This is a 54yoWM clinic patient of Dr Bar who I transferred over from [facility] [place] due to VDRF in severe COPD patient who is still actively smoking. DNR rescinded yesterday and worsened respiratory status after COVID negative results. PNA treated along with AECOPD with steroids and biPAP did not improve status so he w as electively intubated and transferred. Subjective/Events-last exam Vent dependent NO changes Objective Exam Vital Signs Vital Signs Date Time Temp Pulse Resp B/P (MAP) Pulse Ox O2 Delivery O2 Flow Rate FiO2 03/16/20 20:36 74 18 151/94 92 Mechanical Ventilator 50.00 03/16/20 20:20 50 03/16/20 19:30 35.9 Capillary Refill : Less Than 3 Seconds General Appearance: No Apparent Distress, WD/WN, Chronically ill, Thin Respiratory: No Respiratory Distress, Decreased Breath Sounds Cardiovascular: Regular Rate, Rhythm Results/Procedures Lab Laboratory Tests 03/16/20 02:05 Patient resulted labs reviewed. Assessment/Plan Assessment and Plan Assess & Plan/Chief Complaint Assessment: VDRF AECOPD Severe COPD Current smoker Anxiety HLP HTN Plan: Vent management Appreciate Dr Padron 03/07/20: Vent COPD is severe 03/13/20: Difficulty with wean due to end stage COPD PEEP 14 03/14/20: Wean? End stage COPD 03/15/20: End stage COPD 03/16/20: Vent dependent Diagnosis/Problems Diagnosis/Problems (1) Respiratory failure Clinical Quality Measures DVT/VTE Risk/Contraindication: Risk Factor Score Per Nursin RFS Level Per Nursing on Admit: 4+=Very High SHELLEY KRAMER DO Mar 16, 2020 06:38
[2020-03-16 07:00] VITALS: BP 160/100
--- NOTE | 2020-03-16 07:09 | Diagnostic Imaging Report ---
Indication: Dyspnea. Comparison made with prior examination from 03/14/2020 FINDINGS: Heart size is unchanged. Lines and tubes are in satisfactory position. There is some venous congestion. Some bibasal atelectasis and/or pneumonitis. There is a small left pleural effusion. No pneumothorax. Mediastinum is unremarkable IMPRESSION: Mild bibasilar subsegmental atelectasis and/or pneumonitis and small left pleural effusion. Mild central pulmonary venous congestion. Dictated by: Dictated on workstation # [id number]
[2020-03-16] MEDS: PANTOPRAZOLE 40 MG (PROTONIX) VIAL IV SCH (08:47)
[2020-03-16] MEDS: DOCUSATE SODIUM 10 MG/ML 10 ML UDC (COLACE) PO SCH ×2 (08:47→20:36)
[2020-03-16] MEDS: amLODIPine 5 MG (NORVASC) TAB PO SCH (08:47)
[2020-03-16] MEDS: GABAPENTIN 300 MG (NEURONTIN) CAP PO SCH ×2 (08:47→20:36)
[2020-03-16] MEDS: LACTULOSE SYRUP 10GM/15ML (ENULOSE) 30ML UDC PO SCH ×2 (08:47→20:37)
[2020-03-16] MEDS: FUROSEMIDE 40 MG/4 ML INJ (LASIX) IVP SCH (08:47)
[2020-03-16] MEDS: risperiDONE 1 MG (RisperDAL) TAB PO SCH ×2 (08:47→20:36)
[2020-03-16] MEDS: meTOprolol TARTRATE 25 MG (LOPRESSOR) TABLET PO SCH ×2 (08:47→20:36)
[2020-03-16] MEDS: LORazepam INJ 2 MG/ML (ATIVAN) VIAL IV PRN ×2 (09:36→17:55)
[2020-03-16 10:13] VITALS: BP 127/80
[2020-03-16] MEDS: PROPOFOL DRIP (ICU) 100 ML IV SCH (11:48)
--- NOTE | 2020-03-16 11:51 | NUR ---
UPDATED VIA TELEPHONE. ANSWERED ALL QUESTIONS. NO FURTHER CONCERNS NOTED PER ELEANOR.
[2020-03-16 14:10] VITALS: BP 141/88
[2020-03-16 19:55] VITALS: BP 145/93
[2020-03-16] MEDS: LACTATED RINGERS 1,000 ML IV SCH (20:36)
--- NOTE | 2020-03-16 21:07 | NUR ---
Telephone update given to Deyanira at this time.
[2020-03-16 23:57] VITALS: BP 140/89
[2020-03-17] MEDS: hydrALAZINE (APESOLINE) 20 MG/ML VIAL IV PRN ×2 (02:12→11:05)
[2020-03-17] MEDS: DexMEDEtomidine PRE MIX 100 ML IV SCH ×6 (02:34→21:53)
[2020-03-17 02:38] VITALS: BP 137/77
[2020-03-17] MEDS: RT-ALBUTEROL/IPRATROPIUM 3 ML (DUONEB) VIAL INH SCH ×6 (02:38→21:15)
[2020-03-17 03:14] LABS: BASOPHILS % (AUTO) 0 % (0-10); EOSINOPHILS % (AUTO) 0 % (0-10); HEMATOCRIT 41 % (40-54); HEMOGLOBIN 13.7 g/dL (13.3-17.7); LYMPHOCYTES # (AUTO) 0.2 10^3/uL (1.0-4.0); LYMPHOCYTES % (AUTO) 1 % (12-44); MEAN CORPUSCULAR HEMOGLOBIN 31 pg (25-34); MEAN CORPUSCULAR HGB CONC 34 g/dL (32-36); MEAN CORPUSCULAR VOLUME 92 fL (80-99); MEAN PLATELET VOLUME 9.3 fL (9.0-12.2); MONOCYTES # (AUTO) 0.7 10^3/uL (0.0-1.0); MONOCYTES % (AUTO) 5 % (0-12); NEUTROPHILS # (AUTO) 14.4 10^3/uL (1.8-7.8); NEUTROPHILS % (AUTO) 93 % (42-75); PLATELET COUNT 169 10^3/uL (130-400); WHITE BLOOD COUNT 15.5 10^3/uL (4.3-11.0)
[2020-03-17 03:15] LABS: ABG BASE EXCESS 5.1 MMOL/L (-2.5-2.5); ABG OXYGEN SATURATION 93 % (94-100); ABG PCO2 41 MMHG (35-45); ABG PH 7.46 (7.37-7.43); ABG PO2 72 MMHG (79-93); ABG TCO2 30.1 MMOL/L (21.0-31.0); ALLENS TEST YES-POS; INSPIRED O2 50%; PATIENT TEMP 36.9; VENTILATOR YES
[2020-03-17 03:30] LABS: BUN/CREATININE RATIO 46; CALCIUM 7.8 MG/DL (8.5-10.1); CARBON DIOXIDE 26 MMOL/L (21-32); CHLORIDE 101 MMOL/L (98-107); CREATININE SERUM 0.78 MG/DL (0.60-1.30); GFR ESTIMATED > 60; GLUCOSE 185 MG/DL (70-105); MAGNESIUM 2.2 MG/DL (1.6-2.4); PHOSPHORUS 2.8 MG/DL (2.3-4.7); POTASSIUM 4.4 MMOL/L (3.6-5.0); SODIUM 137 MMOL/L (135-145)
[2020-03-17] MEDS: POTASSIUM CL 10MEQ/50ML IVPB 50 ML IV SCH (03:39)
[2020-03-17] MEDS: KCL 20 MEQ TAB (K-DUR) PO SCH (03:39)
[2020-03-17] MEDS: MAGNESIUM 1 GM/100 ML IVPB 100 ML IV SCH (03:39)
[2020-03-17] MEDS: fentaNYL DRIP PRE-MIX 250 ML IV SCH ×3 (03:43→09:24)
[2020-03-17 03:50] LABS: BAND NEUTROPHILS 1 %; LYMPHOCYTES % (MANUAL) 1 %; MONOCYTES % (MANUAL) 6 %; NEUTROPHILS % (MANUAL) 92 %; RBC MORPH NORMAL
--- NOTE | 2020-03-17 04:21 | Pulmonary Progress Note ---
Subjective Time Seen by a Provider: 04:16 Subjective/Events-last exam Pt is sedated on vent. Sepsis Event Evaluation Height, Weight, BMI Height: 5'8.00" Weight: 139lbs. 0.0oz. 63.021134fy; 21.1 BMI Method: Exam Exam Vital Signs Date Time Temp Pulse Resp B/P (MAP) Pulse Ox O2 Delivery O2 Flow Rate FiO2 03/17/20 02:59 36.9 Mechanical Ventilator 50.00 03/17/20 02:38 80 18 92 50 03/17/20 02:34 77 132/77 03/16/20 23:57 67 18 93 50 03/16/20 23:52 36.4 Mechanical Ventilator 50.00 03/16/20 23:34 70 141/90 Mechanical Ventilator 50.00 03/16/20 23:00 70 17 145/91 (109) 92 Mechanical Ventilator 50.00 03/16/20 22:00 70 15 141/92 (108) 92 Mechanical Ventilator 50.00 03/16/20 21:00 71 16 143/89 (107) 92 Mechanical Ventilator 50.00 03/16/20 20:36 74 18 151/94 92 Mechanical Ventilator 50.00 03/16/20 20:36 74 18 151/94 03/16/20 20:20 91 Mechanical Ventilator 50 03/16/20 20:00 70 14 150/93 (112) 91 Mechanical Ventilator 50.00 03/16/20 19:55 72 18 91 50 03/16/20 19:30 35.9 70 18 143/87 (105) 93 Mechanical Ventilator 50.00 03/16/20 19:29 35.9 03/16/20 19:00 69 03/16/20 19:00 68 14 137/84 (101) 93 Mechanical Ventilator 50.00 03/16/20 18:00 69 18 144/93 (116) 90 Mechanical Ventilator 50.00 03/16/20 18:00 35.6 70 18 139/86 90 Mechanical Ventilator 03/16/20 17:45 70 18 141/95 (114) 91 03/16/20 17:30 69 17 145/89 (110) 90 03/16/20 17:25 35.6 03/16/20 17:15 69 18 143/93 (114) 91 03/16/20 17:00 70 14 145/93 (113) 91 Mechanical Ventilator 50.00 03/16/20 16:45 68 16 145/91 (116) 92 03/16/20 16:30 69 16 141/91 (115) 92 03/16/20 16:15 69 13 133/83 (101) 92 03/16/20 16:11 50.00 03/16/20 16:00 70 18 139/86 (110) 90 Mechanical Ventilator 45.00 03/16/20 15:46 35.8 69 15 145/93 91 Mechanical Ventilator 03/16/20 15:45 75 18 149/99 (121) 91 03/16/20 15:30 67 20 144/92 (118) 91 03/16/20 15:15 67 15 145/92 (114) 91 03/16/20 15:00 69 15 145/93 (119) 91 Mechanical Ventilator 45.00 03/16/20 14:45 70 17 146/94 (115) 92 03/16/20 14:30 69 20 146/92 (115) 92 03/16/20 14:15 68 17 145/97 (119) 92 03/16/20 14:10 68 18 92 50 03/16/20 14:00 68 17 141/88 (110) 90 Mechanical Ventilator 45.00 03/16/20 13:45 67 17 137/88 (107) 91 03/16/20 13:36 35.8 71 20 147/89 91 Mechanical Ventilator 03/16/20 13:36 71 20 147/89 03/16/20 13:30 67 19 131/85 (106) 90 03/16/20 13:15 67 18 133/88 (109) 91 03/16/20 13:00 68 20 130/83 (105) 90 Mechanical Ventilator 45.00 03/16/20 12:53 71 03/16/20 12:45 70 19 136/86 (106) 90 03/16/20 12:30 70 18 133/86 (105) 90 03/16/20 12:15 73 16 144/90 (112) 90 03/16/20 12:00 20 147/89 (107) 91 Mechanical Ventilator 45.00 03/16/20 11:53 35.8 71 17 135/85 (102) 92 Mechanical Ventilator 45.00 03/16/20 11:45 69 23 135/85 (105) 91 03/16/20 11:30 71 24 139/85 (105) 90 03/16/20 11:15 80 15 162/99 (126) 91 03/16/20 11:00 68 20 123/78 (96) 90 Mechanical Ventilator 45.00 03/16/20 10:45 68 15 131/82 (100) 90 03/16/20 10:30 68 20 135/84 (105) 90 03/16/20 10:15 77 12 147/88 (111) 92 03/16/20 10:13 70 20 92 45 03/16/20 10:00 69 20 127/80 (97) 92 Mechanical Ventilator 45.00 03/16/20 09:45 71 14 138/90 (108) 91 03/16/20 09:30 89 28 183/109 (132) 93 03/16/20 09:28 36.2 73 18 156/97 93 Mechanical Ventilator 03/16/20 09:15 72 16 150/89 (114) 93 03/16/20 09:00 36.2 73 18 156/97 (116) 93 Mechanical Ventilator 45.00 03/16/20 08:51 35.9 03/16/20 08:44 94 Mechanical Ventilator 45 03/16/20 08:30 72 14 164/100 (127) 93 03/16/20 08:15 78 17 173/105 (132) 93 03/16/20 08:00 72 17 171/102 (131) 92 Mechanical Ventilator 45.00 03/16/20 07:45 108 15 199/130 (156) 91 03/16/20 07:30 81 15 168/101 (127) 93 03/16/20 07:15 72 165/100 (128) 03/16/20 07:00 69 25 160/100 (124) 94 Mechanical Ventilator 45.00 03/16/20 07:00 73 03/16/20 07:00 70 18 94 45 03/16/20 06:45 70 36 160/99 (124) 94 03/16/20 06:30 70 16 156/97 (118) 94 03/16/20 06:15 70 14 158/101 (121) 94 03/16/20 06:00 71 18 158/101 (120) 94 Mechanical Ventilator 45.00 03/16/20 05:00 71 20 184/109 (134) 95 Mechanical Ventilator 45.00 I & O 03/17/20 07:00 Intake Total 5690 ml Output Total 3140 ml Balance 2550 ml Height & Weight Height: 5'8.00" Weight: 139lbs. 0.0oz. 63.040555bm; 21.1 BMI Method: General Appearance: No Apparent Distress, WD/WN, Chronically ill, Thin Respiratory: No Respiratory Distress, Decreased Breath Sounds Cardiovascular: Regular Rate, Rhythm Capillary Refill: Less Than 3 Seconds Neurologic/Psychiatric: Other (sedated) Results Lab Laboratory Tests 03/16/20 02:05 03/17/20 03:00 Assessment/Plan Assessment/Plan Acute on chronic respiratory failure - vt 450, RR to 18 and PEEP to 10. --PEEP to 5 and currently 50% -Give 40mg of Lasix Daily -IVF LR 30cc/hr -On Versed 8 and fentanyl 250, and precedex -Hold Versed and Fentanyl and attempt to wean pt -COVID rapid and PCR negative -MRSA swab negative -Started TF -CTA r/o PE - Neg for PE Leukocytosis -Repeat koenig cultures -Check PCT -Not currently on Abx Pulmonary edema and atelectasis -Lasix 40mg - IVF to KVO - Echo Psychosis -Start PRN haldol and Ativan -Scheduled Risperadol Hypothyroid synthroid COPD with acute exacerbation -On vent -Solumedrol 40Q6 -Duoneb -s/p Cefepime-- -continue Duoneb -MRSA screen negative -repeat ABG DVT/GI ppx: -on Lovenox and Protonix BARBY CAPELLAN DO Mar 17, 2020 04:21
[2020-03-17] MEDS ORDERED: lisINopril 10 MG (PRINIVIL) TABLET ONE (04:36)
[2020-03-17] MEDS ORDERED: meTOprolol TARTRATE 50 MG (LOPRESSOR) TAB ONE (04:36)
[2020-03-17] MEDS: amLODIPine 5 MG (NORVASC) TAB PO SCH (04:42)
[2020-03-17] MEDS: meTOprolol TARTRATE 25 MG (LOPRESSOR) TABLET PO SCH ×2 (04:43→19:48)
[2020-03-17] MEDS: lisINopril 10 MG (PRINIVIL) TABLET PO SCH (04:43)
[2020-03-17] MEDS: LEVOTHYROXINE 100 MCG (LEVOTHROID) TAB PO SCH (04:44)
[2020-03-17] MEDS: methylPREDNISolone 40 MG/ML (Solu-MEDROL) VIAL IV SCH ×4 (04:44→23:33)
[2020-03-17] MEDS: ENOXAPARIN 40 MG/0.4 ML (LOVENOX) SYR SC SCH (04:44)
--- NOTE | 2020-03-17 05:15 | NUR ---
Patient sedation placed on hold at this time. Precedex continues at 1.5
[2020-03-17] MEDS: inSUlin ASPART (NovoLOG) 1 UNIT/0.01 ML (CHARGE PER UNIT) SC SCH ×4 (05:19→23:10)
[2020-03-17] MEDS: niCARdipine IV 50 MG in NS (IVPB) 230 ML IV SCH ×4 (05:19→19:32)
--- NOTE | 2020-03-17 05:40 | NUR ---
Call placed to RT to inform that Dr Padron wants patient ETT advanced 5cm.
--- NOTE | 2020-03-17 05:50 | NUR ---
RT here, ETT advanced to 25cm@ the lip.
[2020-03-17 05:59] LABS: BILIRUBIN,URINE NEGATIVE (NEGATIVE); CLARITY,URINE CLEAR; COLOR,URINE YELLOW; GLUCOSE, URINE (UA) 1+ (NEGATIVE); KETONES,URINE NEGATIVE (NEGATIVE); LEUKOCYTE ESTERASE ,URINE NEGATIVE (NEGATIVE); NITRITE,URINE NEGATIVE (NEGATIVE); PROTEIN,URINE TRACE (NEGATIVE)
[2020-03-17] MEDS ORDERED: niCARdipine IV FOR DRIP 50 MG KIT ONE (06:02)
[2020-03-17] MEDS ORDERED: NS (IVPB) 250 ML ONE (06:02)
[2020-03-17 06:12] LABS: BACTERIA,URINE TRACE /HPF; SQUAMOUS EPITHELIAL CELL,UR 0-2 /HPF; WBC,URINE RARE /HPF
--- NOTE | 2020-03-17 06:15 | NUR ---
Dr Padron in to see the patient. Will cancel weaning for today based on patient condition. Will continue Precedex drip and resume Fentanyl. No Versed drip at this time. Versed remains discontinued.
[2020-03-17] MEDS: NYSTATIN ORAL SUSP 5 ML UDC PO SCH ×4 (06:31→23:33)
--- NOTE | 2020-03-17 06:53 | Progress Note - Hospitalist ---
Subjective HPI/CC On Admission Date Seen by Provider: Mar 17, 2020 Time Seen by Provider: 10:00 CC: VDRF HPI: This is a 54yoWM clinic patient of Dr Bar who I transferred over from [facility] [place] due to VDRF in severe COPD patient who is still actively smoking. DNR rescinded yesterday and worsened respiratory status after COVID negative results. PNA treated along with AECOPD with steroids and biPAP did not improve status so he w as electively intubated and transferred. Subjective/Events-last exam Pt self-extubated In-stage COPD will be a challenge to maintain on BiPAP Pt very well may require a trache and ultimately long-term vent management Focused Exam Lactate Level 03/17/20 05:25: Lactic Acid Level 1.08 Lactic Acid Level Objective Exam Vital Signs Vital Signs Date Time Temp Pulse Resp B/P (MAP) Pulse Ox O2 Delivery O2 Flow Rate FiO2 03/18/20 04:27 Vapotherm 40.00 100.00 03/18/20 03:50 37.3 03/18/20 03:31 106 147/75 03/18/20 01:51 30 95 03/17/20 20:00 100 Capillary Refill : Less Than 3 Seconds General Appearance: Moderate Distress Respiratory: Decreased Breath Sounds Results/Procedures Lab Laboratory Tests 03/18/20 02:56 Patient resulted labs reviewed. Assessment/Plan Assessment and Plan Assess & Plan/Chief Complaint Assessment: VDRF AECOPD Severe COPD Current smoker Anxiety HLP HTN Plan: Vent management Appreciate Dr Padron 03/07/20: Vent COPD is severe 03/13/20: Difficulty with wean due to end stage COPD PEEP 14 03/14/20: Wean? End stage COPD 03/15/20: End stage COPD 03/16/20: Vent dependent 03/17/20: Self extubated Prognosis poor Diagnosis/Problems Diagnosis/Problems (1) Respiratory failure Clinical Quality Measures DVT/VTE Risk/Contraindication: Risk Factor Score Per Nursin RFS Level Per Nursing on Admit: 4+=Very High SHELLEY KRAMER DO Mar 17, 2020 06:53
--- NOTE | 2020-03-17 07:12 | Diagnostic Imaging Report ---
INDICATION: Evaluate tube placement. FINDINGS: ET, NG and central venous catheter are in satisfactory position. There is some venous congestion. There are patchy bibasilar infiltrates. Left pleural effusion. No pneumothorax. Mediastinum is unremarkable IMPRESSION: Patchy bibasilar infiltrates and left pleural effusion. Mild central pulmonary venous congestion. Dictated by: Dictated on workstation # [id number]
--- NOTE | 2020-03-17 07:14 | Diagnostic Imaging Report ---
INDICATION: COPD. Comparison made with prior examination of 03/16/2020. FINDINGS: Heart size is normal. Mild venous congestion. There is some bibasilar atelectasis and pneumonitis. There is a small left pleural effusion. No pneumothorax. ET, NG and PICC line are in satisfactory position. IMPRESSION: Bibasilar infiltrates and left pleural effusion. Mild central pulmonary venous congestion. Dictated by: Dictated on workstation # [id number]
[2020-03-17 07:31] VITALS: BP 147/78
[2020-03-17] MEDS ORDERED: MIDAZOLAM DRIP PRE-MIX 100 ML IV ONE (08:45)
[2020-03-17] MEDS ORDERED: ACETAMINOPHEN 650 MG SUPP (TYLENOL) ONE (08:45)
[2020-03-17] MEDS: LACTULOSE SYRUP 10GM/15ML (ENULOSE) 30ML UDC PO SCH ×3 (09:00→19:51)
[2020-03-17] MEDS: DOCUSATE SODIUM 10 MG/ML 10 ML UDC (COLACE) PO SCH ×3 (09:00→19:51)
[2020-03-17] MEDS: risperiDONE 1 MG (RisperDAL) TAB PO SCH ×3 (09:00→19:48)
[2020-03-17] MEDS ORDERED: amLODIPine 5 MG (NORVASC) TAB PO SCH (09:00)
[2020-03-17] MEDS: GABAPENTIN 300 MG (NEURONTIN) CAP PO SCH ×3 (09:00→19:48)
[2020-03-17] MEDS: PANTOPRAZOLE 40 MG (PROTONIX) VIAL IV SCH (09:27)
[2020-03-17] MEDS: morphine INJ 4 MG/ML 1 ML (VIAL/SYRINGE) IVP PRN ×2 (09:27→11:04)
[2020-03-17] MEDS: FUROSEMIDE 40 MG/4 ML INJ (LASIX) IVP SCH (09:27)
[2020-03-17] MEDS: ACETAMINOPHEN 325 MG TABLET ONE ×2 (09:29→10:33)
[2020-03-17 09:46] VITALS: BP 134/73
--- NOTE | 2020-03-17 09:48 | Pulmonary Progress Note ---
Standard Progress Note Progress Notes Date Seen by Provider: Mar 17, 2020 Time Seen by Provider: 09:47 Called to bedside secondary to self extubation. Will trial pt to BIPAP and continue to monitor close. Will repeat ABG in 1hr. Assessment & Plan Acute on chronic respiratory failure -Self extubation -- trial BiPAP -Repeat ABG in 1hr. - vt 450, RR to 18 and PEEP to 10. --PEEP to 5 and currently 50% -Give 40mg of Lasix Daily -IVF LR 30cc/hr -On Versed 8 and fentanyl 250, and precedex -Hold Versed and Fentanyl and attempt to wean pt -COVID rapid and PCR negative -MRSA swab negative -Started TF -CTA r/o PE - Neg for PE Leukocytosis -Repeat koenig cultures -Check PCT -Not currently on Abx Pulmonary edema and atelectasis -Lasix 40mg - IVF to KVO - Echo Psychosis -Start PRN haldol and Ativan -Scheduled Risperadol Hypothyroid synthroid COPD with acute exacerbation -On vent -Solumedrol 40Q6 -Duoneb -s/p Cefepime-- -continue Duoneb -MRSA screen negative -repeat ABG DVT/GI ppx: -on Lovenox and Protonix Critical Care: Critically Ill Patient Time spent with patient (mins): 60 Focused Exam Lactate Level 03/17/20 05:25: Lactic Acid Level 1.08 BARBY CAPELLAN DO Mar 17, 2020 09:48
--- NOTE | 2020-03-17 10:00 | NUR ---
0930 - Upon entering patients room this RN noted that ET tube was at a 10 at the lip. Was passed on in report that patient's ET Tube was 25 at the gums. Called for RT. Cuff deflated and removed the rest of the way. Nereida to bedside. Patient placed on Bipap. Noted Patient was properly restrained.
[2020-03-17] MEDS ORDERED: ACETAMINOPHEN 325 MG TABLET PO PRN (10:15)
[2020-03-17] MEDS ORDERED: ACETAMINOPHEN 650 MG SUPP (TYLENOL) PR PRN (10:15)
[2020-03-17 10:49] VITALS: BP 184/116
[2020-03-17 14:27] VITALS: BP 136/87
[2020-03-17 16:07] LABS: ABG BASE EXCESS 7.4 MMOL/L (-2.5-2.5); ABG OXYGEN SATURATION 94 % (94-100); ABG PCO2 36 MMHG (35-45); ABG PH 7.54 (7.37-7.43); ABG PO2 67 MMHG (79-93); ABG TCO2 31.6 MMOL/L (21.0-31.0)
[2020-03-17 16:09] LABS: ALLENS TEST YES-POS; INSPIRED O2 100%; PATIENT TEMP 36.9; VENTILATOR NO
--- NOTE | 2020-03-17 17:21 | NUR ---
Note pt had self-extubated earlier today. Would recommend hold TF at this time. Will continue to follow and reassess as pt needs, intake, and status change. Kerry Tao MS RD LD [phone] cell
[2020-03-17] MEDS ORDERED: FUROSEMIDE 40 MG/4 ML INJ (LASIX) IVP ONE (18:45)
--- NOTE | 2020-03-17 20:25 | NUR ---
Telephone update given to patient Deyanira at this time.
[2020-03-17 21:16] VITALS: BP 125/72
[2020-03-18] MEDS: DexMEDEtomidine PRE MIX 100 ML IV SCH ×3 (00:41→06:22)
[2020-03-18] MEDS: LACTATED RINGERS 1,000 ML IV SCH (00:41)
[2020-03-18 01:51] VITALS: BP 151/87
[2020-03-18] MEDS: RT-ALBUTEROL/IPRATROPIUM 3 ML (DUONEB) VIAL INH SCH ×3 (01:51→11:32)
[2020-03-18] MEDS: niCARdipine IV 50 MG in NS (IVPB) 230 ML IV SCH (02:23)
[2020-03-18 03:04] LABS: BASOPHILS % (AUTO) 0 % (0-10); EOSINOPHILS % (AUTO) 0 % (0-10); HEMATOCRIT 39 % (40-54); HEMOGLOBIN 13.2 g/dL (13.3-17.7); LYMPHOCYTES # (AUTO) 0.1 10^3/uL (1.0-4.0); LYMPHOCYTES % (AUTO) 1 % (12-44); MEAN CORPUSCULAR HEMOGLOBIN 31 pg (25-34); MEAN CORPUSCULAR HGB CONC 34 g/dL (32-36); MEAN CORPUSCULAR VOLUME 89 fL (80-99); MEAN PLATELET VOLUME 9.3 fL (9.0-12.2); MONOCYTES # (AUTO) 0.9 10^3/uL (0.0-1.0); MONOCYTES % (AUTO) 5 % (0-12); NEUTROPHILS # (AUTO) 16.9 10^3/uL (1.8-7.8); NEUTROPHILS % (AUTO) 94 % (42-75); PLATELET COUNT 131 10^3/uL (130-400); WHITE BLOOD COUNT 18.1 10^3/uL (4.3-11.0)
[2020-03-18 03:23] LABS: BUN/CREATININE RATIO 39; CARBON DIOXIDE 29 MMOL/L (21-32); CHLORIDE 97 MMOL/L (98-107); CREATININE SERUM 0.76 MG/DL (0.60-1.30); GFR ESTIMATED > 60; GLUCOSE 167 MG/DL (70-105); MAGNESIUM 1.7 MG/DL (1.6-2.4); PHOSPHORUS 2.6 MG/DL (2.3-4.7); POTASSIUM 3.2 MMOL/L (3.6-5.0); SODIUM 137 MMOL/L (135-145); TRIGLYCERIDES 216 MG/DL (<150)
[2020-03-18] MEDS: inSUlin ASPART (NovoLOG) 1 UNIT/0.01 ML (CHARGE PER UNIT) SC SCH ×2 (03:26→13:18)
[2020-03-18] MEDS: POTASSIUM CL 10MEQ/50ML IVPB 50 ML IV SCH ×10 (03:26→11:14)
[2020-03-18] MEDS: MAGNESIUM 1 GM/100 ML IVPB 100 ML IV SCH ×3 (03:26→04:25)
[2020-03-18] MEDS: KCL 20 MEQ TAB (K-DUR) PO SCH (03:26)
[2020-03-18] MEDS: morphine INJ 4 MG/ML 1 ML (VIAL/SYRINGE) IVP PRN (03:30)
[2020-03-18 03:57] LABS: ABG BASE EXCESS 7.8 MMOL/L (-2.5-2.5); ABG OXYGEN SATURATION 92 % (94-100); ABG PCO2 35 MMHG (35-45); ABG PH 7.55 (7.37-7.43); ABG PO2 65 MMHG (79-93); ABG TCO2 31.8 MMOL/L (21.0-31.0)
[2020-03-18 03:58] LABS: ALLENS TEST YES-POS; INSPIRED O2 85%; PATIENT TEMP 37.3; VENTILATOR NO
[2020-03-18] MEDS ORDERED: FUROSEMIDE 40 MG/4 ML INJ (LASIX) IVP ONE (04:17)
[2020-03-18] MEDS: methylPREDNISolone 40 MG/ML (Solu-MEDROL) VIAL IV SCH ×2 (04:21→13:19)
--- NOTE | 2020-03-18 04:23 | Pulmonary Progress Note ---
Subjective Time Seen by a Provider: 04:21 Subjective/Events-last exam Pt is requiring more oxygen this morning. Sepsis Event Evaluation Height, Weight, BMI Height: 5'8.00" Weight: 139lbs. 0.0oz. 63.542127ww; 21.1 BMI Method: Focused Exam Lactate Level 03/17/20 05:25: Lactic Acid Level 1.08 Exam Exam Vital Signs Date Time Temp Pulse Resp B/P (MAP) Pulse Ox O2 Delivery O2 Flow Rate FiO2 03/18/20 03:50 37.3 03/18/20 03:31 106 147/75 03/18/20 03:20 37.5 NIV Bilevel 85.00 03/18/20 01:51 101 30 95 85.00 03/18/20 01:00 100 03/18/20 00:42 NIV Bilevel 85.00 03/18/20 00:41 103 160/94 03/17/20 23:44 37.6 03/17/20 22:05 NIV Bilevel 90.00 03/17/20 21:53 80 103/92 03/17/20 21:16 126 33 95 100.00 03/17/20 20:00 92 NIV Bilevel 100 03/17/20 19:54 NIV Bilevel 100.00 03/17/20 19:25 37.1 112 24 158/97 (117) 95 Vapotherm 40.00 100.00 03/17/20 19:09 95 Vapotherm 40.00 100 03/17/20 19:00 Vapotherm 40.00 100.00 03/17/20 19:00 118 03/17/20 18:55 112 03/17/20 18:00 116 31 165/88 (113) 96 NIV Bilevel 100.00 03/17/20 17:00 115 32 165/88 (113) 95 NIV Bilevel 100.00 03/17/20 16:03 36.9 126 33 136/87 95 03/17/20 16:00 118 27 186/97 (126) 94 NIV Bilevel 100.00 03/17/20 15:57 36.9 03/17/20 15:00 120 34 149/77 (101) 94 NIV Bilevel 100.00 03/17/20 14:27 126 33 95 100.00 03/17/20 14:00 133 27 165/90 (115) 96 NIV Bilevel 100.00 03/17/20 13:00 126 21 151/86 (107) 93 NIV Bilevel 100.00 03/17/20 12:40 126 03/17/20 12:00 37.4 03/17/20 12:00 123 23 150/86 (107) 94 NIV Bilevel 100.00 03/17/20 11:00 112 14 157/86 (109) 97 NIV Bilevel 100.00 03/17/20 10:49 115 21 95 100.00 03/17/20 10:00 111 17 154/77 (102) 94 NIV Bilevel 100.00 03/17/20 09:46 107 30 95 100.00 03/17/20 09:30 NIV Bilevel 100.00 03/17/20 09:28 113 28 147/78 03/17/20 09:24 38.0 113 28 147/78 92 Mechanical Ventilator 03/17/20 09:00 91 Mechanical Ventilator 50 03/17/20 09:00 110 24 151/79 (103) 90 Mechanical Ventilator 03/17/20 08:00 111 17 137/73 (94) 91 Mechanical Ventilator 03/17/20 08:00 38.0 03/17/20 07:31 113 28 92 50 03/17/20 07:00 115 26 156/77 (103) 89 Mechanical Ventilator 50.00 03/17/20 06:41 115 03/17/20 06:21 122 171/97 03/17/20 06:00 134 20 171/97 (121) 91 Mechanical Ventilator 50.00 03/17/20 05:00 118 20 154/84 (107) 91 Mechanical Ventilator 50.00 I & O 03/18/20 07:00 Intake Total 1800 ml Output Total 5725 ml Balance -3925 ml Height & Weight Height: 5'8.00" Weight: 139lbs. 0.0oz. 63.079941kb; 21.1 BMI Method: General Appearance: No Apparent Distress, WD/WN, Chronically ill, Thin Respiratory: No Respiratory Distress, Decreased Breath Sounds Cardiovascular: Regular Rate, Rhythm Capillary Refill: Less Than 3 Seconds Neurologic/Psychiatric: Other (sedated) Results Lab Laboratory Tests 03/17/20 03:00 03/18/20 02:56 Assessment/Plan Assessment/Plan Acute on chronic respiratory failure - Self extubated 03/17 -Give 40mg of Lasix Daily -IVF LR 30cc/hr -COVID rapid and PCR negative -MRSA swab negative -Started TF -CTA r/o PE - Neg for PE Leukocytosis -Add Zosyn -Repeat koenig cultures pending -Not currently on Abx Pulmonary edema and atelectasis -Lasix 40mg - IVF to KVO - Echo Psychosis -Start PRN haldol and Ativan -Scheduled Risperadol Hypothyroid synthroid COPD with acute exacerbation -On vent -Solumedrol 40Q6 -Duoneb -s/p Cefepime-- -continue Duoneb -MRSA screen negative -repeat ABG DVT/GI ppx: -on Lovenox and Protonix BARBY CAPELLAN DO Mar 18, 2020 04:23
[2020-03-18] MEDS: ENOXAPARIN 40 MG/0.4 ML (LOVENOX) SYR SC SCH (04:25)
[2020-03-18] MEDS ORDERED: PIPERACILLIN/TAZO 4.5 GM VIAL (ZOSYN) IV ONE (04:28)
[2020-03-18] MEDS ORDERED: NS (IVPB) 100 ML ONE (04:28)
[2020-03-18] MEDS: LEVOTHYROXINE 100 MCG (LEVOTHROID) TAB PO SCH (04:42)
[2020-03-18] MEDS: NYSTATIN ORAL SUSP 5 ML UDC PO SCH ×3 (04:43→18:02)
[2020-03-18] MEDS ORDERED: PIPERACILLIN/TAZOBACTAM (BULK) 4.5 GM in NS (IVPB) 100 ML IV SCH ×2 (05:00→11:00)
--- NOTE | 2020-03-18 05:53 | Progress Note - Hospitalist ---
Subjective HPI/CC On Admission Date Seen by Provider: Mar 18, 2020 Time Seen by Provider: 09:00 CC: VDRF HPI: This is a 54yoWM clinic patient of Dr Bar who I transferred over from [facility] [place] due to VDRF in severe COPD patient who is still actively smoking. DNR rescinded yesterday and worsened respiratory status after COVID negative results. PNA treated along with AECOPD with steroids and biPAP did not improve status so he w as electively intubated and transferred. Subjective/Events-last exam Self extubated yesterday, maintained on vapotherm Pt is now a DNR and do not intubate again Pt has very poor prognosis Review of Systems General: Fatigue, Malaise Pulmonary: Dyspnea Focused Exam Lactate Level 03/17/20 05:25: Lactic Acid Level 1.08 Objective Exam Vital Signs Vital Signs Date Time Temp Pulse Resp B/P (MAP) Pulse Ox O2 Delivery O2 Flow Rate FiO2 03/18/20 15:10 Vapotherm 35.00 80 03/18/20 11:32 94 03/18/20 08:00 103 33 134/100 (111) 03/18/20 08:00 37.4 Capillary Refill : Less Than 3 Seconds General Appearance: Anxious, Chronically ill, Mild Distress Respiratory: Accessory Muscle Use, Decreased Breath Sounds Cardiovascular: Regular Rate, Rhythm Neurologic/Psychiatric: Alert, Disoriented Results/Procedures Lab Laboratory Tests 03/18/20 02:56 Patient resulted labs reviewed. Assessment/Plan Assessment and Plan Assess & Plan/Chief Complaint Assessment: VDRF AECOPD Severe COPD Current smoker Anxiety HLP HTN Plan: Vent management Appreciate Dr Padron 03/07/20: Vent COPD is severe 03/13/20: Difficulty with wean due to end stage COPD PEEP 14 03/14/20: Wean? End stage COPD 03/15/20: End stage COPD 03/16/20: Vent dependent 03/17/20: Self extubated Prognosis poor 03/18/20: DNR Move to 4th floor Poor prognosis Critical Care Critically Ill Patient Diagnosis/Problems Diagnosis/Problems (1) Respiratory failure Clinical Quality Measures DVT/VTE Risk/Contraindication: Risk Factor Score Per Nursin RFS Level Per Nursing on Admit: 4+=Very High SHELLEY KRAMER DO Mar 18, 2020 05:53
[2020-03-18 06:22] VITALS: BP 151/79
[2020-03-18] MEDS: aCETylcysteine 20% (MUCOMYST) 30ML SOLN VIAL INH SCH ×2 (07:45→11:32)
--- NOTE | 2020-03-18 08:17 | Diagnostic Imaging Report ---
INDICATION: COPD exacerbation, infiltrate. TECHNIQUE: Single view chest 3:05 AM. CORRELATION STUDY: 03/17/2020 FINDINGS: Interval extubation and removal of gastric tube. Right-sided central line tip over the SVC stable. Heart size and mediastinum are unchanged. Vasculature slightly more prominent from prior. Mixed alveolar and interstitial infiltrates throughout both lung kendall, left significantly greater than right, are adversely changed from prior. Probable bilateral pleural effusions. Moderate stool and gaseous distention of the colon and the upper abdomen. IMPRESSION: 1. Interval extubation. 2. Vasculature appears increased from prior. 3. Bilateral mixed alveolar and interstitial infiltrate throughout both lung kendall, left greater the right, are adversely changed from prior. Probable bilateral pleural effusions as well. Dictated by: Dictated on workstation # [id number]
--- NOTE | 2020-03-18 08:29 | Pulmonary Progress Note ---
Standard Progress Note Progress Notes Date Seen by Provider: Mar 18, 2020 Time Seen by Provider: 08:25 Called to bedside secondary to pt refusing breathing treatments and requiring more oxygen. I went in and reexamined pt. He would tell me why he is refusing treatment. Per RT he said "I just want to ." I do not believe pt is able to make his own choices at this time. I called and discussed with pt's . I gave her a medical update and answered all of her questions to the best of my ability. I presented and explained in detail all options for pt from full code to EGG PRODUCER. is going to d/w other family and then call us back. Pt is currently a full code. He is still very critical and may need to be reintubated if family is ok with reintubation. UPDATE: [id number]: called back and she would like to make pt DNR, No CODE blue, No intubation. Family will probably proceed with EGG PRODUCER once they are able to d/w other family members. I will consult card fixer to help family with questions and answers. I called and updated Dr. Martell with pt's current status. Assessment & Plan Acute on chronic respiratory failure - Self extubated 03/17 -Give 40mg of Lasix Daily -IVF LR 30cc/hr -COVID rapid and PCR negative -MRSA swab negative -Started TF -CTA r/o PE - Neg for PE Leukocytosis -Add Zosyn -Repeat koenig cultures pending -Not currently on Abx Pulmonary edema and atelectasis -Lasix 40mg - IVF to KVO - Echo Psychosis -Start PRN haldol and Ativan -Scheduled Risperadol Hypothyroid synthroid COPD with acute exacerbation -On vent -Solumedrol 40Q6 -Duoneb -s/p Cefepime-- -continue Duoneb -MRSA screen negative -repeat ABG DVT/GI ppx: -on Lovenox and Protonix Critical Care: Critically Ill Patient Time spent with patient (mins): 45 Focused Exam Lactate Level 03/17/20 05:25: Lactic Acid Level 1.08 BARBY CAPELLAN DO Mar 18, 2020 08:29
[2020-03-18] MEDS ORDERED: aCETylcysteine 20% (MUCOMYST) 30ML SOLN VIAL INH SCH (09:00)
--- NOTE | 2020-03-18 10:14 | NUR ---
Palliative Care RN was asked by Dr. Padron to touch base with family. They have made decision to make him a DNR and are planning to have a family meeting to discuss making him CCMO. I explained process and advocated for them to take their time and not trujillo into a decision.
[2020-03-18] MEDS: FUROSEMIDE 40 MG/4 ML INJ (LASIX) IVP SCH (10:37)
[2020-03-18] MEDS: GABAPENTIN 300 MG (NEURONTIN) CAP PO SCH (11:25)
[2020-03-18] MEDS: meTOprolol TARTRATE 25 MG (LOPRESSOR) TABLET PO SCH (11:25)
[2020-03-18] MEDS: LACTULOSE SYRUP 10GM/15ML (ENULOSE) 30ML UDC PO SCH (11:25)
[2020-03-18] MEDS: PANTOPRAZOLE 40 MG (PROTONIX) VIAL IV SCH (11:25)
[2020-03-18] MEDS: lisINopril 10 MG (PRINIVIL) TABLET PO SCH (11:25)
[2020-03-18] MEDS: DOCUSATE SODIUM 10 MG/ML 10 ML UDC (COLACE) PO SCH (11:25)
[2020-03-18] MEDS: risperiDONE 1 MG (RisperDAL) TAB PO SCH ×2 (11:25→20:26)
[2020-03-18] MEDS: amLODIPine 5 MG (NORVASC) TAB PO SCH (11:25)
--- NOTE | 2020-03-18 11:35 | NUR ---
Contacted by ICU that family would be coming to ER entrance for EOL visitation as pt was being made comfort care. I contacted family and facilitated visiting 2 at a time. I provided support throughout afternoon and had prayer with family at bedside, they are tearful but coping well.
[2020-03-18] MEDS ORDERED: ONDANSETRON 4 MG/2 ML (SDV) Z0FRAN IVP PRN (11:45)
[2020-03-18] MEDS ORDERED: BISACODYL 10 MG SUPP (DULCOLAX) PR PRN (11:45)
[2020-03-18] MEDS ORDERED: ACETAMINOPHEN 650 MG SUPP (TYLENOL) PR PRN (11:45)
[2020-03-18] MEDS ORDERED: RT-ALBUTEROL/IPRATROPIUM 3 ML (DUONEB) VIAL INH PRN (11:45)
[2020-03-18] MEDS ORDERED: SALIVA STIMULANT MOUTH SPRAY (BIOTENE) 1.5 OZ MM PRN (11:45)
[2020-03-18] MEDS ORDERED: PROMETHAZINE INJ 25 MG/ML (PHENERGAN) AMP IVP PRN (11:45)
--- NOTE | 2020-03-18 12:00 | NUR ---
Patient transferred from ICU. Report received from [place] MEJIA. Family at bedside. Patient voices no complaints at this time.
--- NOTE | 2020-03-18 12:16 | NUR ---
PALLAITIVE CARE RN received call from Dr. Hinojosa who had just been in from by RN that family had called and asked for patient to be made CCMO and they were on their way. I entered the CC order set. and will adjust based on his response to decreased oxygen.
[2020-03-18] MEDS: GLYCOPYRROLATE 0.2 MG/ML (ROBINUL) 2 ML VIAL IV PRN ×3 (12:28→21:22)
--- NOTE | 2020-03-18 12:30 | NUR ---
Patient transferred to room 402, and brother at bedside. No needs voiced.
[2020-03-18] MEDS: morphine INJ 4 MG/ML 1 ML (VIAL/SYRINGE) IV PRN ×5 (12:57→22:24)
--- NOTE | 2020-03-18 15:04 | NUR ---
PALLIATIVE CARE RN in to check on patient. He has and another family at bedside. Reiterated that once they were ready and we will discontinue the Vapotherm and apply 2 L NC to allow for Full CCMO. Nurse has given the same message and has been responsive to patient's pain needs.
--- NOTE | 2020-03-18 16:00 | NUR ---
Family requests to take patient off of the vapotherm at this time. Vapotherm removed. 2L NC applied for comfort. Patient verbalize no complaints or needs at this time.
[2020-03-18] MEDS: LORazepam INJ 2 MG/ML (ATIVAN) VIAL IVP PRN ×2 (16:06→22:58)
[2020-03-19] MEDS: NYSTATIN ORAL SUSP 5 ML UDC PO SCH ×4 (00:09→16:27)
[2020-03-19] MEDS: morphine INJ 4 MG/ML 1 ML (VIAL/SYRINGE) IV PRN ×11 (00:18→23:16)
[2020-03-19] MEDS: LORazepam INJ 2 MG/ML (ATIVAN) VIAL IVP PRN ×6 (01:18→21:02)
[2020-03-19] MEDS: GLYCOPYRROLATE 0.2 MG/ML (ROBINUL) 2 ML VIAL IV PRN ×5 (03:39→21:01)
--- NOTE | 2020-03-19 09:11 | NUR ---
Palliative Care RN in to see patient. He is now off of Vapotherm at family request and POC is Comfort Measures only at this time. Oxygen is on at 2 L, he does have a rattle when he breathes and he is receiving medication to assist with this. In addition, he is receiving Morphine and Ativan PRN for comfort. Will continue to follow and offer assist as able. Addendum: 03/19/20 at 0916 by OMAR CACERES RN a sister and brother in law are at the bedside at this time.
[2020-03-19] MEDS: FUROSEMIDE 40 MG/4 ML INJ (LASIX) IVP SCH (09:33)
[2020-03-19] MEDS: risperiDONE 1 MG (RisperDAL) TAB PO SCH ×2 (09:33→21:02)
--- NOTE | 2020-03-19 11:04 | NUR ---
checked in ion pt with his sister and LISANDRO. All seemed at peace. offered prayer.
--- NOTE | 2020-03-19 11:24 | Progress Note - Hospitalist ---
Subjective HPI/CC On Admission Date Seen by Provider: Mar 19, 2020 Time Seen by Provider: 10:00 CC: VDRF HPI: This is a 54yoWM clinic patient of Dr Bar who I transferred over from [facility] [place] due to VDRF in severe COPD patient who is still actively smoking. DNR rescinded yesterday and worsened respiratory status after COVID negative results. PNA treated along with AECOPD with steroids and biPAP did not improve status so he was electively intubated and transferred. Subjective/Events-last exam Pt on comfort care Sister and at the bedside Morphine helpful for tachypnea Pt unresponsive Focused Exam Lactate Level Objective Exam Vital Signs Vital Signs Date Time Temp Pulse Resp B/P (MAP) Pulse Ox O2 Delivery O2 Flow Rate FiO2 03/20/20 08:00 Room Air 03/19/20 21:00 2.00 03/18/20 15:10 80 03/18/20 11:32 94 03/18/20 08:00 103 33 134/100 (111) 03/18/20 08:00 37.4 Capillary Refill : Less Than 3 Seconds General Appearance: No Apparent Distress, Chronically ill, Other (comatose) Results/Procedures Lab Patient resulted labs reviewed. Assessment/Plan Assessment and Plan Assess & Plan/Chief Complaint Assessment: VDRF AECOPD Severe COPD Current smoker Anxiety HLP HTN Plan: Vent management Appreciate Dr Padron 03/07/20: Vent COPD is severe 03/13/20: Difficulty with wean due to end stage COPD PEEP 14 03/14/20: Wean? End stage COPD 03/15/20: End stage COPD 03/16/20: Vent dependent 03/17/20: Self extubated Prognosis poor 03/18/20: DNR Move to 4th floor Poor prognosis 03/19/20: Comfort care Critical Care Critically Ill Patient Diagnosis/Problems Diagnosis/Problems (1) Respiratory failure Clinical Quality Measures DVT/VTE Risk/Contraindication: Risk Factor Score Per Nursin RFS Level Per Nursing on Admit: 4+=Very High SHELLEY KRAMER DO Mar 19, 2020 11:24
[2020-03-20] MEDS: NYSTATIN ORAL SUSP 5 ML UDC PO SCH ×3 (00:03→13:29)
[2020-03-20] MEDS: LORazepam INJ 2 MG/ML (ATIVAN) VIAL IVP PRN ×5 (00:17→11:11)
[2020-03-20] MEDS: morphine INJ 4 MG/ML 1 ML (VIAL/SYRINGE) IV PRN ×4 (01:30→08:57)
[2020-03-20] MEDS: GLYCOPYRROLATE 0.2 MG/ML (ROBINUL) 2 ML VIAL IV PRN ×3 (02:35→11:11)
[2020-03-20] MEDS: FUROSEMIDE 40 MG/4 ML INJ (LASIX) IVP SCH (07:31)
[2020-03-20] MEDS: risperiDONE 1 MG (RisperDAL) TAB PO SCH (07:32)
--- NOTE | 2020-03-20 08:40 | NUR ---
PALLIATIVE CARE RN in to see patient. He laying in bed and responded to voice by trying to open his eyes. Brother and sister are at bedside. They have told me that they plan to use [facility] out of [place] I have put the paperwork indicting this choice on the chart. I also discussed oxygen needs at this time of life. They called and she is in agreement with removal of the 2 L NC at this time. Brother and sister are at bedside and voice no needs at this time.
--- NOTE | 2020-03-20 12:34 | NUR ---
RN CALLED TO ROOM BY FAMILY, SECOND NURSE ACCOMPANIED THIS RN TO BEDSIDE. PT WAS ASSESSED, NO RESPIRATIONS OR HEART BEAT WAS OBSERVED. DR KRAMER NOTIFIED OF TIME OF . FAMILY DENIES NEEDS AT THIS TIME, THEY DO NOT NEED PASTORAL CARE. FAMILY AT BEDSIDE, WILL CONTINUE TO MONITOR AND ASSIST FAMILY WHEN NEEDED.
--- NOTE | 2020-03-20 12:41 | Discharge Summary ---
Discharge Summary Hospital Course Was the Problem List Reviewed?: Yes Problems/Dx: (1) Respiratory failure Hospital Course Date of Admission: Mar 05, 2020 at 15:18 Admission Diagnosis : Family Physician/Provider: Shahzad Bar DO Date of Discharge: 03/20/20 Discharge Diagnosis: end stage COPD, resp failure, s/p VDRF Hospital Course: Patient was placed on comfort care after spending 2 weeks on vent in ICU. End stage COPD made it diff to wean vent and ultimately he self extubated and the decision was made not to reintubate after Dr Padron spoke to family and he was placed on comfort care and . Labs and Pending Lab Test: Microbiology 03/17/20 Blood Culture - Preliminary, Resulted No growth 03/06/20 Urine Culture - Final, Complete NO GROWTH 03/05/20 MRSA Screen - Final, Complete MRSA not isolated Home Meds Active Reported Gabapentin 300 Mg Capsule 300 Mg PO BID Ibuprofen 200 Mg Tablet 400 Mg PO DAILY Fish Oil 1,000 mg Softgel (Clute-3/Dha/Epa/Fish Oil) 1 Each Capsule 1 Each PO DAILY Xanax (Alprazolam) 0.5 Mg Tablet 0.5 Mg PO HS Risperidone 1 Mg Tablet 1 Mg PO HS Symbicort 160-4.5 Mcg Inhaler (Budesonide/Formoterol Fumarate) 10.2 Gm Hfa.aer.ad 2 Puff IH DAILY Simvastatin 20 Mg Tablet 20 Mg PO HS Lisinopril 10 Mg Tablet 10 Mg PO HS Cyclobenzaprine HCl 10 Mg Tablet 10 Mg PO DAILY Lexapro (Escitalopram Oxalate) 20 Mg Tablet 30 Mg PO DAILY TAKES 1 & 1/2 TABS OF THE 20MG TO EQUAL A 30MG DOSE Levothyroxine Sodium 100 Mcg Tablet 100 Mcg PO 1200 Cetirizine HCl 10 Mg Tablet 10 Mg PO 1200 Metformin HCl 500 Mg Tablet 500 Mg PO BID Multiple Vitamins (Multivitamin) 1 Each Tablet 1 Each PO DAILY Assessment/Pt Instructions Discharge Planning: <30 minutes discharge planning Discharge Physical Examination Vital Signs Vital Signs Date Time Temp Pulse Resp B/P (MAP) Pulse Ox O2 Delivery O2 Flow Rate FiO2 03/20/20 08:00 Room Air 03/19/20 21:00 2.00 03/18/20 15:10 80 03/18/20 11:32 94 03/18/20 08:00 103 33 134/100 (111) 03/18/20 08:00 37.4 General Appearance: Chronically ill Allergies: Coded Allergies: No Known Drug Allergies (Unverified , 03/23/13) Discharge Summary Date of Admission Mar 05, 2020 at 15:18 Date of Discharge Admission Diagnosis Assessment: VDRF AECOPD Severe COPD Current smoker Anxiety HLP HTN Plan: Vent management Appreciate Dr Padron Comfort Measures/ End of Life Care: Comfort Measures Discharge Diagnosis Assessment: VDRF AECOPD Severe COPD Current smoker Anxiety HLP HTN Plan: Vent management Appreciate Dr Padron 03/07/20: Vent COPD is severe 03/13/20: Difficulty with wean due to end stage COPD PEEP 14 03/14/20: Wean? End stage COPD 03/15/20: End stage COPD 03/16/20: Vent dependent 03/17/20: Self extubated Prognosis poor 03/18/20: DNR Move to 4th floor Poor prognosis (1) Respiratory failure Clinical Quality Measures DVT/VTE Risk/Contraindication: Risk Factor Score Per Nursin RFS Level Per Nursing on Admit: 4+=Very High SHELLEY KRAMER DO Mar 20, 2020 12:41
== END 2020-03-20 15:15 | disposition expired | DRG 207 ==
LOC: ICU 15:18 → 4TH 03-18 12:09
PROVIDERS: ADMIT Internal Medicine; ATTEND Internal Medicine
PROC: 5A1955Z Respiratory Ventilation, Greater than 96 Consecutive Hours (ICD-10-PCS; principal; 2020-03-05)
PROC: 0BH17EZ Insertion of Endotracheal Airway into Trachea, Via Natural or Artificial Opening (ICD-10-PCS; 2020-03-05)
DX: J96.21 Acute and chronic respiratory failure with hypoxia (principal); J98.11 Atelectasis; J81.1 Chronic pulmonary edema; J44.1 Chronic obstructive pulmonary disease with (acute) exacerbation; E87.6 Hypokalemia; E83.39 Other disorders of phosphorus metabolism; I95.9 Hypotension, unspecified; Z20.828 Contact with and (suspected) exposure to other viral communicable diseases; Z66 Do not resuscitate; Z51.5 Encounter for palliative care; F17.210 Nicotine dependence, cigarettes, uncomplicated; E78.00 Pure hypercholesterolemia, unspecified; E03.9 Hypothyroidism, unspecified; I10 Essential (primary) hypertension; F41.9 Anxiety disorder, unspecified; F29 Unspecified psychosis not due to a substance or known physiological condition; D72.829 Elevated white blood cell count, unspecified
CPT/HCPCS: 36415; 36569; 71045; 71275; 74177; 76937; 80048; 80053; 80202; 81000; 82805; 82962; 83605; 83735; 83880; 84100; 84145; 84478; 85007; 85025; 85027; 85379; 87040; 87081; 87088; 87635; 93306; 94002; 94003; 94640; 94660; 94799